=== PATIENT | female | born 1970 | race Two or more races ===

== ENCOUNTER 2022-02-10 20:23 | Inpatient (IN) | payer MEDICAID, OTHER ==
[~2022-02-10] VITALS: Ht 170.2 cm; Wt 66.0 kg
[2022-02-10] MEDS ORDERED: SODIUM CHLORIDE 0.9% 1,000 ML IV ONE ×2 (21:30→23:15)
[2022-02-10 21:43] LABS: Urine Bacteria FEW /hpf (None Seen); Urine Blood TRACE /uL (Negative); Urine Mucus FEW (None Seen); Urine Specific Gravity 1.023 (1.001-1.035); Urine WBC 139 /hpf (0 - 5); Urine WBC Clumps PRESENT /hpf (None Seen)
[2022-02-10 22:17] LABS: Basophils # (auto) 0 10 ^3/uL (0-0.2); Basophils % (auto) 0.6 % (0.0-2.0); Eosinophils # (auto) 0.2 10 ^3/uL (0-0.8); Eosinophils % (auto) 2.4 % (0.0-7.0); Hematocrit 31.4 % (36.0-46.0); Hemoglobin 10.5 g/dL (12.2-16.2); Lymphocytes # (auto) 3.5 10 ^3/uL (0.4-5.4); Lymphocytes % (auto) 44.4 % (10.0-50.0); Mean Corpuscular Hemoglobin 27.5 pg (28.0-32.0); Mean Corpuscular Hgb Conc. 33.4 g/dL (32.0-36.0); Mean Corpuscular Volume 82.5 fL (80.0-100.0); Monocytes # (auto) 0.6 10 ^3/uL (0-1.3); Monocytes % (auto) 7.1 % (0.0-12.0); Neutrophils # (auto) 3.6 10 ^3/uL (1.6-8.6); Neutrophils % (auto) 45.5 % (37.0-80.0); Nucleated Red Blood Cells % 0.1 %; Red Cell Distribution Width 12.9 % (11.8-14.3); White Blood Cell 7.9 10^3/uL (4.4-10.8)
[2022-02-10 22:47] LABS: Calcium 8.8 mg/dL (8.5-10.1); Potassium 4.2 mmol/L (3.5-5.1)
[2022-02-10 22:50] LABS: BUN/Creatinine Ratio 13.5; Bilirubin, Total 0.2 mg/dL (0.2-1.0); Total Protein 7.9 g/dL (6.4-8.2)
[2022-02-10] MEDS ORDERED: ONDANSETRON HCL 4 MG/2 ML VIAL IV ONE (23:15)
[2022-02-10] MEDS ORDERED: VANCOMYCIN 1GM/250ML 250 ML IV ONE (23:15)
[2022-02-11 00:38] LABS: Lactic Acid w/Reflex 2.2 mmol/L (0.4-2.0)
[2022-02-11] MEDS ORDERED: OXYCODONE W/ ACETAMINOPHEN 5/325MG TABLET PO ONE (01:45)
[2022-02-11] MEDS ORDERED: cefTRIAXone 1GM/50ML D5W 50 ML IV ONE (02:00)
[2022-02-11] MEDS ORDERED: ACETAMINOPHEN 325 MG TAB PO PRN (03:45)
[2022-02-11] MEDS ORDERED: VANCOMYCIN PER PHARMACY 0 MG IV SCH (03:45)
[2022-02-11] MEDS ORDERED: TEMAZEPAM 15 MG CAP PO PRN (03:45)
[2022-02-11] MEDS ORDERED: DEXTROSE (50%) 50ML SYRG IV PRN (03:45)
[2022-02-11] MEDS ORDERED: DOCUSATE SOD 100 MG CAP PO PRN (03:45)
[2022-02-11] MEDS: SODIUM CHLORIDE 0.9% 1,000 ML IV SCH ×2 (04:25→20:25)
[2022-02-11] MEDS: HYDROmorphone HCL 2 MG/ML VL/or syr IV PRN ×3 (04:27→21:25)
[2022-02-11] MEDS: ONDANSETRON HCL 4 MG/2 ML VIAL IV PRN ×3 (04:29→22:40)
[2022-02-11] MEDS ORDERED: NITROGLYCERIN 0.4 MG SL TAB SL PRN (05:00)
[2022-02-11] MEDS ORDERED: MORPHINE SULFATE INJ 2 MG/ml SYRG IV PRN (05:00)
[2022-02-11 06:22] LABS: Albumin 2.8 g/dL (3.4-5.0); BUN/Creatinine Ratio 19.7; Calcium 8.2 mg/dL (8.5-10.1); Potassium 4.5 mmol/L (3.5-5.1)
[2022-02-11] MEDS: ACCU-CHEK COMFORT CURVE STRIP VI SCH ×3 (06:27→19:34)
[2022-02-11 06:30] LABS: Bilirubin, Total 0.2 mg/dL (0.2-1.0); Total Protein 7.2 g/dL (6.4-8.2)
[2022-02-11] MEDS: InsuLIN REG 1unit/0.01ml Soln (100units/ml) SC SCH ×3 (06:30→18:44)
[2022-02-11 06:31] LABS: Basophils # (auto) 0.1 10 ^3/uL (0-0.2); Basophils % (auto) 0.7 % (0.0-2.0); Eosinophils # (auto) 0.2 10 ^3/uL (0-0.8); Eosinophils % (auto) 2.7 % (0.0-7.0); Hematocrit 29.6 % (36.0-46.0); Hemoglobin 10.1 g/dL (12.2-16.2); Lymphocytes # (auto) 3.4 10 ^3/uL (0.4-5.4); Lymphocytes % (auto) 44.4 % (10.0-50.0); Mean Corpuscular Volume 82.4 fL (80.0-100.0); Monocytes # (auto) 0.5 10 ^3/uL (0-1.3); Monocytes % (auto) 6.9 % (0.0-12.0); Neutrophils # (auto) 3.4 10 ^3/uL (1.6-8.6); Neutrophils % (auto) 45.3 % (37.0-80.0); Nucleated Red Blood Cells % 0.1 %; Red Blood Cells 3.59 10^6/uL (4.0-5.20); Red Cell Distribution Width 12.8 % (11.8-14.3); White Blood Cell 7.6 10^3/uL (4.4-10.8)
[2022-02-11] MEDS: LORazepam 2MG/ML-1ML VIAL IV PRN ×2 (07:24→22:40)
[2022-02-11] MEDS: ZINC SULFATE 220mg CAP or TAB PO SCH (10:15)
[2022-02-11 14:38] VITALS: BP 140/85
[2022-02-11] MEDS ORDERED: METF-372 PO (14:49)
[2022-02-11 17:07] VITALS: BP 142/84
[2022-02-11] MEDS: VANCOMYCIN 1GM/250ML 250 ML IV SCH (18:39)
[2022-02-11 22:00] VITALS: BP 144/86
[2022-02-11] MEDS ORDERED: INSULIN LANTUS (GLARGINE) 1 /0.01ml (100units/ml) SC SCH (22:00)
[2022-02-12] MEDS: ACCU-CHEK COMFORT CURVE STRIP VI SCH ×3 (01:15→14:14)
[2022-02-12] MEDS: InsuLIN REG 1unit/0.01ml Soln (100units/ml) SC SCH ×3 (01:17→13:22)
[2022-02-12 05:00] VITALS: BP_SYST 123; BP_SYST 150; BP_DIAS 74; BP_DIAS 78
[2022-02-12 05:16] LABS: Basophils # (auto) 0 10 ^3/uL (0-0.2); Basophils % (auto) 0.5 % (0.0-2.0); Eosinophils # (auto) 0.2 10 ^3/uL (0-0.8); Eosinophils % (auto) 2.8 % (0.0-7.0); Hematocrit 27.7 % (36.0-46.0); Hemoglobin 9.5 g/dL (12.2-16.2); Lymphocytes # (auto) 2.7 10 ^3/uL (0.4-5.4); Lymphocytes % (auto) 42.2 % (10.0-50.0); Mean Corpuscular Hgb Conc. 34.4 g/dL (32.0-36.0); Mean Corpuscular Volume 81.2 fL (80.0-100.0); Monocytes # (auto) 0.5 10 ^3/uL (0-1.3); Monocytes % (auto) 7.2 % (0.0-12.0); Neutrophils % (auto) 47.3 % (37.0-80.0); Red Blood Cells 3.41 10^6/uL (4.0-5.20); Red Cell Distribution Width 13.1 % (11.8-14.3); White Blood Cell 6.4 10^3/uL (4.4-10.8)
[2022-02-12 05:38] LABS: Calcium 8.4 mg/dL (8.5-10.1); Magnesium 2.1 mg/dL (1.6-2.6); Potassium 4.6 mmol/L (3.5-5.1)
[2022-02-12 05:46] LABS: Albumin 2.3 g/dL (3.4-5.0); BUN/Creatinine Ratio 21.7; Bilirubin, Total 0.2 mg/dL (0.2-1.0); Total Protein 5.8 g/dL (6.4-8.2)
[2022-02-12] MEDS: VANCOMYCIN 1GM/250ML 250 ML IV SCH (06:16)
[2022-02-12 08:00] VITALS: BP 110/85
[2022-02-12] MEDS ORDERED: cefTRIAXone 1GM/50ML D5W 50 ML IV SCH (09:00)
[2022-02-12] MEDS: ZINC SULFATE 220mg CAP or TAB PO SCH (09:02)
[2022-02-12] MEDS ORDERED: LANC-347 XX (10:57)
[2022-02-12] MEDS ORDERED: DOXY-332 PO (10:57)
[2022-02-12] MEDS ORDERED: INSLANTI SC (10:57)
[2022-02-12] MEDS ORDERED: GLIP5TAB12 PO (10:57)
[2022-02-12] MEDS ORDERED: INSU-567 XX (10:57)
[2022-02-12] MEDS ORDERED: BLOO1KIT60 XX (10:57)
[2022-02-12] MEDS: HYDROmorphone HCL 2 MG/ML VL/or syr IV PRN (11:00)
[2022-02-12] MEDS: ONDANSETRON HCL 4 MG/2 ML VIAL IV PRN (11:18)
[2022-02-12] MEDS: LORazepam 2MG/ML-1ML VIAL IV PRN (13:18)
[2022-02-12] MEDS: SODIUM CHLORIDE 0.9% 1,000 ML IV SCH (14:18)
[2022-02-12 15:07] VITALS: BP 136/82
== END 2022-02-12 17:00 | disposition home or self-care (01) | DRG 383 ==
LOC: EDBD 20:23 → ER 20:23 → OVERFLOW 02-11 04:53 → CENTRAL 02-11 14:20
PROVIDERS: ADMIT Nurse Practitioner Family; ATTEND Internal Medicine
DX: L03.011 Cellulitis of right finger (principal); N17.0 Acute kidney failure with tubular necrosis; E87.1 Hypo-osmolality and hyponatremia; L03.115 Cellulitis of right lower limb; E88.09 Other disorders of plasma-protein metabolism, not elsewhere classified; E11.65 Type 2 diabetes mellitus with hyperglycemia; N39.0 Urinary tract infection, site not specified; S60.519A Abrasion of unspecified hand, initial encounter; R74.8 Abnormal levels of other serum enzymes; Z20.822 Contact with and (suspected) exposure to COVID-19; L25.9 Unspecified contact dermatitis, unspecified cause; W57.XXXA Bitten or stung by nonvenomous insect and other nonvenomous arthropods, initial encounter; Y93.89 Activity, other specified; Y92.89 Other specified places as the place of occurrence of the external cause; Y99.8 Other external cause status; Z88.5 Allergy status to narcotic agent; Z79.84 Long term (current) use of oral hypoglycemic drugs
CPT/HCPCS: 36415; 73130; 80053; 81001; 82010; 82962; 83036; 83605; 83735; 85025; 87040; 87086; 96361; 96365; 96375; G0378; J0696; J1815; J2405

== ENCOUNTER 2022-05-17 12:14 | Inpatient (IN) | payer MEDICAID ==
[~2022-05-17] VITALS: Ht 170.2 cm; Wt 75.4 kg
[~2022-05-17 12:14] MED LIST: BLOO1KIT60 XX; DOXY-332 PO; GLIP5TAB12 PO; INSLANTI SC; INSU-567 XX; LANC-347 XX; METF-372 PO
[2022-05-17] MEDS ORDERED: SODIUM CHLORIDE 0.9% 1,000 ML IV ONE (13:30)
[2022-05-17] MEDS ORDERED: ceFAZolin 1GM/50ML 50 ML IV ONE (13:30)
[2022-05-17 15:03] LABS: Calcium 8.4 mg/dL (8.5-10.1); Potassium 4.4 mmol/L (3.5-5.1)
[2022-05-17 15:07] LABS: Albumin 3.1 g/dL (3.4-5.0); BUN/Creatinine Ratio 27.9; Magnesium 2.2 mg/dL (1.6-2.6)
[2022-05-17 15:09] LABS: Bilirubin, Total 0.3 mg/dL (0.2-1.0); Total Protein 6.4 g/dL (6.4-8.2)
[2022-05-17 15:23] LABS: CRP High Sensitivity 1.7 mg/dL (< 0.3)
[2022-05-17 16:07] LABS: Basophils # (auto) 0 10 ^3/uL (0-0.2); Basophils % (auto) 0.4 % (0.0-2.0); Eosinophils # (auto) 0.1 10 ^3/uL (0-0.8); Eosinophils % (auto) 1.4 % (0.0-7.0); Hematocrit 32.6 % (36.0-46.0); Lymphocytes # (auto) 2.5 10 ^3/uL (0.4-5.4); Lymphocytes % (auto) 28.9 % (10.0-50.0); Mean Corpuscular Hgb Conc. 33.8 g/dL (32.0-36.0); Mean Corpuscular Volume 82.7 fL (80.0-100.0); Monocytes # (auto) 0.8 10 ^3/uL (0-1.3); Monocytes % (auto) 9.7 % (0.0-12.0); Neutrophils # (auto) 5.1 10 ^3/uL (1.6-8.6); Neutrophils % (auto) 59.6 % (37.0-80.0); Red Blood Cells 3.94 10^6/uL (4.0-5.20); Red Cell Distribution Width 13.8 % (11.8-14.3); White Blood Cell 8.5 10^3/uL (4.4-10.8)
[2022-05-17] MEDS ORDERED: fentaNYL CITRATE 100 MCG/2 ML VL IV ONE (16:15)
[2022-05-17] MEDS ORDERED: SODIUM CHLORIDE 0.9% 1,000 ML IV SCH (21:45)
[2022-05-17] MEDS ORDERED: ONDANSETRON HCL 4 MG/2 ML VIAL IV PRN (21:45)
[2022-05-17] MEDS ORDERED: DEXTROSE (50%) 50ML SYRG IV PRN (21:45)
[2022-05-17] MEDS ORDERED: MAALOX PLUS or MAALOX 30 ML PO PRN (21:45)
[2022-05-17] MEDS ORDERED: ACETAMINOPHEN 325 MG TAB PO PRN (21:45)
[2022-05-17] MEDS: ACCU-CHEK COMFORT CURVE STRIP VI SCH (22:00)
[2022-05-17] MEDS: InsuLIN REG 1unit/0.01ml Soln (100units/ml) SC SCH (22:00)
[2022-05-18] MEDS ORDERED: HYDROcodone-ACET 5/325MG TAB PO ONE (00:15)
[2022-05-18] MEDS: ceFAZolin 1GM/50ML 50 ML IV SCH ×3 (04:45→20:16)
[2022-05-18] MEDS: ACCU-CHEK COMFORT CURVE STRIP VI SCH ×4 (07:00→23:33)
[2022-05-18 07:44] LABS: Basophils # (auto) 0 10 ^3/uL (0-0.2); Basophils % (auto) 0.3 % (0.0-2.0); Eosinophils # (auto) 0.1 10 ^3/uL (0-0.8); Eosinophils % (auto) 0.5 % (0.0-7.0); Hematocrit 31.1 % (36.0-46.0); Hemoglobin 10.6 g/dL (12.2-16.2); Lymphocytes # (auto) 2.5 10 ^3/uL (0.4-5.4); Lymphocytes % (auto) 24.5 % (10.0-50.0); Mean Corpuscular Hemoglobin 28.5 pg (28.0-32.0); Mean Corpuscular Hgb Conc. 34.1 g/dL (32.0-36.0); Mean Corpuscular Volume 83.5 fL (80.0-100.0); Monocytes # (auto) 1.1 10 ^3/uL (0-1.3); Monocytes % (auto) 10.4 % (0.0-12.0); Neutrophils # (auto) 6.6 10 ^3/uL (1.6-8.6); Neutrophils % (auto) 64.3 % (37.0-80.0); Nucleated Red Blood Cells % 0.1 %; Red Blood Cells 3.72 10^6/uL (4.0-5.20); Red Cell Distribution Width 13.4 % (11.8-14.3); White Blood Cell 10.2 10^3/uL (4.4-10.8)
[2022-05-18 07:59] LABS: BUN/Creatinine Ratio 26.3; Calcium 8.3 mg/dL (8.5-10.1); Potassium 4.2 mmol/L (3.5-5.1)
[2022-05-18] MEDS ORDERED: HYDROmorphone HCL 2 MG/ML VL/or syr IV ONE (12:00)
[2022-05-18 13:41] LABS: INR 0.95 (0.9-1.15)
[2022-05-18] MEDS: InsuLIN REG 1unit/0.01ml Soln (100units/ml) SC SCH ×3 (20:00→23:45)
[2022-05-18] MEDS: SODIUM CHLORIDE 0.9% 1,000 ML IV SCH (20:16)
[2022-05-18 22:00] VITALS: BP 186/103
[2022-05-18] MEDS ORDERED: BACL20TA PO (22:26)
[2022-05-18] MEDS ORDERED: HYDR-3682 PO (22:27)
[2022-05-18 22:28] VITALS: BP 150/82
[2022-05-19] MEDS: HYDROmorphone HCL 2 MG/ML VL/or syr IV PRN ×5 (00:29→22:59)
[2022-05-19] MEDS: TEMAZEPAM 15 MG CAP PO PRN (00:53)
[2022-05-19 05:00] VITALS: BP 146/87
[2022-05-19] MEDS: SODIUM CHLORIDE 0.9% 1,000 ML IV SCH (05:03)
[2022-05-19] MEDS: ceFAZolin 1GM/50ML 50 ML IV SCH ×2 (05:37→15:26)
[2022-05-19 06:26] LABS: Urine Bacteria FEW /hpf (None Seen); Urine Blood 1+ /uL (Negative); Urine Budding Yeast MANY /hpf (None Seen); Urine Specific Gravity 1.014 (1.001-1.035); Urine WBC 285 /hpf (0 - 5); Urine WBC Clumps PRESENT /hpf (None Seen)
[2022-05-19 06:32] LABS: Amphetamine Screen, Urine NEGATIVE (NEGATIVE); Barbiturate Scree,Urine NEGATIVE (NEGATIVE); Benzodiazephine Screen, Urine NEGATIVE (NEGATIVE); Cannabinoid Screen, Urine NEGATIVE (NEGATIVE); Cocaine Screen, Urine NEGATIVE (NEGATIVE); Opiate Scree,Urine NEGATIVE (NEGATIVE); Phencyclidine Screen, Urine NEGATIVE (NEGATIVE)
[2022-05-19] MEDS: ACCU-CHEK COMFORT CURVE STRIP VI SCH ×4 (06:45→21:16)
[2022-05-19 08:00] VITALS: BP 134/85
[2022-05-19 08:54] VITALS: BP 134/85
[2022-05-19] MEDS ORDERED: ONDANSETRON HCL 4 MG/2 ML VIAL ONE (10:13)
[2022-05-19] MEDS ORDERED: fentaNYL CITRATE 100 MCG/2 ML VL ONE (10:13)
[2022-05-19] MEDS ORDERED: MIDAZOLAM HCL 2MG/2ML 2ml VIAL (1mg/ml) ONE (10:13)
[2022-05-19] MEDS ORDERED: DexAMETHasone SOD PHOS 10MG/1ML VIAL INJ ONE (10:13)
[2022-05-19] MEDS ORDERED: SODIUM CHLORIDE LOCK 10 ML ONE (10:14)
[2022-05-19] MEDS ORDERED: PROPOFOL 10 MG/ML 20 ML IV ONE (10:14)
[2022-05-19] MEDS ORDERED: ceFAZolin 1GM/50ML 100 ML IV ONE (10:43)
[2022-05-19] MEDS ORDERED: BUPIVACAINE 0.25% INJ 50ML VIAL ONE (10:45)
[2022-05-19] MEDS ORDERED: VANCOMYCIN HCL 1000 MG VL ONE (10:46)
[2022-05-19] MEDS: InsuLIN REG 1unit/0.01ml Soln (100units/ml) SC SCH ×3 (11:08→21:18)
[2022-05-19] MEDS ORDERED: SUGAMMADEX 200mg/2ml Vial (100MG/ML) IV ONE (12:04)
[2022-05-19] MEDS: FOLIC ACID 1 MG, MULTIPLE VITAMIN 10 ML, MAGNESIUM SULF SDV 50% 8 MEQ, THIAMINE INJ 100... INJ SCH ×5 (16:50)
[2022-05-19 17:25] VITALS: BP 145/88
[2022-05-19] MEDS ORDERED: VANCOMYCIN 1GM/250ML 250 ML IV ONE (17:45)
[2022-05-19] MEDS ORDERED: VANCOMYCIN PER PHARMACY 0 MG IV SCH (17:45)
[2022-05-19] MEDS: VANCOMYCIN 1GM/250ML 250 ML IV SCH (20:19)
[2022-05-19] MEDS: LORazepam 0.5 MG TAB PO PRN (20:20)
[2022-05-19] MEDS: INSULIN LANTUS (GLARGINE) 1 /0.01ml (100units/ml) SC SCH (21:40)
[2022-05-19 22:00] VITALS: BP 150/86
[2022-05-19] MEDS: CEFTRIAXONE SODIUM 2 GM in D5W 5% 50 ML IV SCH (22:59)
[2022-05-20 05:30] VITALS: BP 148/91
[2022-05-20] MEDS: ACCU-CHEK COMFORT CURVE STRIP VI SCH ×4 (06:45→21:53)
[2022-05-20] MEDS: SODIUM CHLORIDE 0.9% 1,000 ML IV SCH ×2 (06:46→13:21)
[2022-05-20] MEDS: InsuLIN REG 1unit/0.01ml Soln (100units/ml) SC SCH ×4 (06:48→21:55)
[2022-05-20] MEDS: HYDROmorphone HCL 2 MG/ML VL/or syr IV PRN ×3 (07:03→20:28)
[2022-05-20 08:00] VITALS: BP 134/85
[2022-05-20] MEDS: CEFTRIAXONE SODIUM 2 GM in D5W 5% 50 ML IV SCH (08:29)
[2022-05-20 09:00] VITALS: BP 132/87
[2022-05-20] MEDS: LORazepam 0.5 MG TAB PO PRN ×2 (12:46→21:54)
[2022-05-20] MEDS: FOLIC ACID 1 MG, MULTIPLE VITAMIN 10 ML, MAGNESIUM SULF SDV 50% 8 MEQ, THIAMINE INJ 100... INJ SCH ×5 (12:46)
[2022-05-20 13:00] VITALS: BP 165/81
[2022-05-20] MEDS: VANCOMYCIN 1GM/250ML 250 ML IV SCH (13:51)
[2022-05-20 16:53] VITALS: BP 148/88
[2022-05-20 21:52] VITALS: BP 153/85
[2022-05-20] MEDS: DOCUSATE SOD 100 MG CAP PO PRN (21:54)
[2022-05-20] MEDS: INSULIN LANTUS (GLARGINE) 1 /0.01ml (100units/ml) SC SCH (21:56)
[2022-05-21] MEDS: HYDROmorphone HCL 2 MG/ML VL/or syr IV PRN ×5 (02:23→22:08)
[2022-05-21 05:00] VITALS: BP 158/92
[2022-05-21] MEDS: SODIUM CHLORIDE 0.9% 1,000 ML IV SCH ×2 (06:29→23:20)
[2022-05-21] MEDS: ACCU-CHEK COMFORT CURVE STRIP VI SCH ×4 (06:30→22:04)
[2022-05-21] MEDS: InsuLIN REG 1unit/0.01ml Soln (100units/ml) SC SCH ×4 (06:32→22:18)
[2022-05-21] MEDS: VANCOMYCIN 1GM/250ML 250 ML IV SCH (07:51)
[2022-05-21 08:00] VITALS: BP 161/94
[2022-05-21 09:00] VITALS: BP 161/94
[2022-05-21] MEDS: CEFTRIAXONE SODIUM 2 GM in D5W 5% 50 ML IV SCH (10:00)
[2022-05-21] MEDS: DOCUSATE SOD 100 MG CAP PO PRN ×2 (11:38→17:30)
[2022-05-21 13:00] VITALS: BP 143/83
[2022-05-21] MEDS: FOLIC ACID 1 MG, MULTIPLE VITAMIN 10 ML, MAGNESIUM SULF SDV 50% 8 MEQ, THIAMINE INJ 100... INJ SCH ×5 (13:26)
[2022-05-21 17:00] VITALS: BP 161/96
[2022-05-21] MEDS: LORazepam 0.5 MG TAB PO PRN (20:50)
[2022-05-21 21:51] VITALS: BP_SYST 141; BP_SYST 151; BP_DIAS 79
[2022-05-21] MEDS: INSULIN LANTUS (GLARGINE) 1 /0.01ml (100units/ml) SC SCH (22:24)
[2022-05-22] MEDS: VANCOMYCIN 1GM/250ML 250 ML IV SCH ×2 (02:00→10:48)
[2022-05-22 05:00] VITALS: BP_SYST 116; BP_SYST 160; BP_DIAS 69; BP_DIAS 81
[2022-05-22] MEDS: HYDROcodone-ACET 5/325MG TAB PO PRN (05:34)
[2022-05-22] MEDS: ACCU-CHEK COMFORT CURVE STRIP VI SCH ×4 (06:45→22:56)
[2022-05-22] MEDS: InsuLIN REG 1unit/0.01ml Soln (100units/ml) SC SCH ×4 (06:50→23:19)
[2022-05-22] MEDS: HYDROmorphone HCL 2 MG/ML VL/or syr IV PRN ×3 (07:15→20:00)
[2022-05-22 09:01] VITALS: BP_SYST 118; BP_SYST 140; BP_DIAS 75; BP_DIAS 76
[2022-05-22] MEDS ORDERED: cefTRIAXone 1GM/50ML D5W 0 ML IV ONE (09:24)
[2022-05-22] MEDS: CEFTRIAXONE SODIUM 2 GM in D5W 5% 50 ML IV SCH (09:38)
[2022-05-22 13:00] VITALS: BP_SYST 112; BP_SYST 144; BP_DIAS 75; BP_DIAS 88
[2022-05-22] MEDS: FOLIC ACID 1 MG, MULTIPLE VITAMIN 10 ML, MAGNESIUM SULF SDV 50% 8 MEQ, THIAMINE INJ 100... INJ SCH ×5 (13:45)
[2022-05-22] MEDS ORDERED: CLINDAMYCIN 300MG IV 50 ML IV SCH (14:00)
[2022-05-22 15:52] LABS: INR 0.89 (0.9-1.15)
[2022-05-22] MEDS: SODIUM CHLORIDE 0.9% 1,000 ML IV SCH (15:58)
[2022-05-22] MEDS: CLINDAMYCIN 600MG IV 50 ML IV SCH ×2 (15:58→22:56)
[2022-05-22 17:00] VITALS: BP 166/85
[2022-05-22 20:00] VITALS: BP 122/98
[2022-05-22] MEDS: LORazepam 0.5 MG TAB PO PRN (20:00)
[2022-05-22 22:00] VITALS: BP 122/98
[2022-05-22] MEDS: INSULIN LANTUS (GLARGINE) 1 /0.01ml (100units/ml) SC SCH (23:19)
[2022-05-23] MEDS: HYDROmorphone HCL 2 MG/ML VL/or syr IV PRN ×4 (01:45→22:20)
[2022-05-23] MEDS: VANCOMYCIN 1GM/250ML 250 ML IV SCH ×2 (04:24→21:59)
[2022-05-23] MEDS: LORazepam 0.5 MG TAB PO PRN ×2 (04:35→10:12)
[2022-05-23 05:00] VITALS: BP 149/88
[2022-05-23] MEDS: ACCU-CHEK COMFORT CURVE STRIP VI SCH ×4 (06:08→22:01)
[2022-05-23] MEDS: InsuLIN REG 1unit/0.01ml Soln (100units/ml) SC SCH ×5 (07:12→23:05)
[2022-05-23 08:23] LABS: Basophils # (auto) 0 10 ^3/uL (0-0.2); Basophils % (auto) 0.3 % (0.0-2.0); Eosinophils # (auto) 0.2 10 ^3/uL (0-0.8); Eosinophils % (auto) 2.5 % (0.0-7.0); Hematocrit 23.7 % (36.0-46.0); Hemoglobin 8.1 g/dL (12.2-16.2); Lymphocytes # (auto) 2.1 10 ^3/uL (0.4-5.4); Mean Corpuscular Hemoglobin 28.3 pg (28.0-32.0); Mean Corpuscular Hgb Conc. 34.3 g/dL (32.0-36.0); Mean Corpuscular Volume 82.3 fL (80.0-100.0); Monocytes # (auto) 0.6 10 ^3/uL (0-1.3); Monocytes % (auto) 9.8 % (0.0-12.0); Neutrophils # (auto) 3.1 10 ^3/uL (1.6-8.6); Neutrophils % (auto) 52.4 % (37.0-80.0); Red Blood Cells 2.87 10^6/uL (4.0-5.20); Red Cell Distribution Width 13.5 % (11.8-14.3)
[2022-05-23 08:31] LABS: INR 0.89 (0.9-1.15)
[2022-05-23] MEDS: SODIUM CHLORIDE 0.9% 1,000 ML IV SCH (08:40)
[2022-05-23] MEDS: CLINDAMYCIN 600MG IV 50 ML IV SCH (08:50)
[2022-05-23] MEDS: HYDROcodone-ACET 5/325MG TAB PO PRN (08:51)
[2022-05-23 09:00] VITALS: BP 148/86
[2022-05-23] MEDS: FOLIC ACID 1 MG, MULTIPLE VITAMIN 10 ML, MAGNESIUM SULF SDV 50% 8 MEQ, THIAMINE INJ 100... INJ SCH ×5 (12:00)
[2022-05-23 13:00] VITALS: BP 156/88
[2022-05-23] MEDS: CEFEPIME 2 GM in SODIUM CHL 0.9% 50 ML IV SCH ×2 (14:00→17:22)
[2022-05-23] MEDS ORDERED: LIDOCAINE 1% (LOCAL ANESTH.) PF 5ml SDV ID ONE (14:00)
[2022-05-23 17:00] VITALS: BP 160/84
[2022-05-23 20:00] VITALS: BP 161/94
[2022-05-23] MEDS: INSULIN LANTUS (GLARGINE) 1 /0.01ml (100units/ml) SC SCH (21:58)
[2022-05-23 22:00] VITALS: BP 180/86
[2022-05-23] MEDS: SODIUM CHLOR 0.9% PF (SALINE LOCK) 10ML VIAL/SYR IV SCH (22:00)
[2022-05-24] MEDS: HYDROcodone-ACET 5/325MG TAB PO PRN (00:07)
[2022-05-24] MEDS: SODIUM CHLORIDE 0.9% 1,000 ML IV SCH (01:15)
[2022-05-24] MEDS: TEMAZEPAM 15 MG CAP PO PRN (02:51)
[2022-05-24] MEDS: HYDROmorphone HCL 2 MG/ML VL/or syr IV PRN ×4 (02:53→16:12)
[2022-05-24 05:20] VITALS: BP 130/85
[2022-05-24 05:28] VITALS: BP 149/80
[2022-05-24] MEDS: ACCU-CHEK COMFORT CURVE STRIP VI SCH ×2 (06:20→11:29)
[2022-05-24] MEDS: InsuLIN REG 1unit/0.01ml Soln (100units/ml) SC SCH ×2 (06:33→11:27)
[2022-05-24 09:00] VITALS: BP 145/96
[2022-05-24] MEDS: SODIUM CHLOR 0.9% PF (SALINE LOCK) 10ML VIAL/SYR IV SCH (11:27)
[2022-05-24] MEDS: LORazepam 0.5 MG TAB PO PRN (11:36)
[2022-05-24] MEDS: FOLIC ACID 1 MG, MULTIPLE VITAMIN 10 ML, MAGNESIUM SULF SDV 50% 8 MEQ, THIAMINE INJ 100... INJ SCH ×5 (12:00)
[2022-05-24] MEDS ORDERED: HYDR-4902 PO (12:28)
[2022-05-24 13:00] VITALS: BP 145/81
[2022-05-24 16:41] VITALS: BP 148/88
== END 2022-05-24 17:35 | disposition home health service (06) | DRG 315 ==
LOC: ER 12:14 → OVERFLOW 21:38 → WEST WING 05-18 21:53
PROVIDERS: ADMIT Hospitalist; ATTEND Family Medicine
PROC: 0LQ30ZZ Repair Right Upper Arm Tendon, Open Approach (ICD-10-PCS; 2022-05-19)
PROC: 0XQBXZZ Repair Right Elbow Region, External Approach (ICD-10-PCS; 2022-05-19)
PROC: 0KB70ZZ Excision of Right Upper Arm Muscle, Open Approach (ICD-10-PCS; 2022-05-19)
PROC: 0RCL0ZZ Extirpation of Matter from Right Elbow Joint, Open Approach (ICD-10-PCS; principal; 2022-05-19 10:54)
PROC: 05HA33Z Insertion of Infusion Device into Left Brachial Vein, Percutaneous Approach (ICD-10-PCS; 2022-05-23)
PROC: B54NZZA Ultrasonography of Left Upper Extremity Veins, Guidance (ICD-10-PCS; 2022-05-23)
DX: S51.021A Laceration with foreign body of right elbow, initial encounter (principal); M00.021 Staphylococcal arthritis, right elbow; I95.89 Other hypotension; E11.649 Type 2 diabetes mellitus with hypoglycemia without coma; E78.5 Hyperlipidemia, unspecified; E11.9 Type 2 diabetes mellitus without complications; B95.8 Unspecified staphylococcus as the cause of diseases classified elsewhere; Z20.822 Contact with and (suspected) exposure to COVID-19; W01.110A Fall on same level from slipping, tripping and stumbling with subsequent striking against sharp glass, initial encounter; F10.229 Alcohol dependence with intoxication, unspecified; I10 Essential (primary) hypertension; R81 Glycosuria; Z88.5 Allergy status to narcotic agent; Y93.89 Activity, other specified; Y92.89 Other specified places as the place of occurrence of the external cause; Y99.8 Other external cause status
CPT/HCPCS: 36415; 36569; 70450; 71045; 73080; 73200; 80048; 80053; 80202; 80307; 80320; 81001; 82565; 82962; 83036; 83605; 83735; 84484; 84702; 85025; 85610; 85652; 86141; 86850; 86900; 86901; 87070; 87075; 87077; 87186; 87205; 87426; 96361; 96365; 96375; G0378; J0690; J0696; J1100; J1815; J2250; J2405; J2704; J3490; J7060

== ENCOUNTER 2023-02-01 20:18 | Emergency (ER) | payer MEDICAID ==
[~2023-02-01] VITALS: Ht 170.2 cm; Wt 65.0 kg
[~2023-02-01 20:18] MED LIST changes: +BACL20TA PO; -DOXY-332 PO; +DOXY-448 PO; +HYDR-3682 PO; +HYDR-4902 PO
[2023-02-01] MEDS ORDERED: HYDROcodone-ACET 5/325MG TAB PO ONE (21:00)
[2023-02-01] MEDS ORDERED: KETOROLAC TROMETH 60MG/2ML VIAL IM ONE (21:00)
[2023-02-02] MEDS ORDERED: cefTRIAXone SOD 1,000 MG VL IM ONE
[2023-02-02] MEDS ORDERED: ACET500T58 PO (00:02)
[2023-02-02] MEDS ORDERED: IBUP-1454 PO (00:02)
[2023-02-02 00:24] VITALS: BP 91/44; PULSE 87; RESP 19; TEMP 97.7; O2SAT 100
== END 2023-02-02 00:25 | disposition home or self-care (01) ==
LOC: ER 20:21
DX: S60.012A Contusion of left thumb without damage to nail, initial encounter (principal); I10 Essential (primary) hypertension; E11.9 Type 2 diabetes mellitus without complications; Z79.4 Long term (current) use of insulin; Z79.899 Other long term (current) drug therapy; Z88.5 Allergy status to narcotic agent; Z88.8 Allergy status to other drugs, medicaments and biological substances; W18.39XA Other fall on same level, initial encounter; Y93.89 Activity, other specified; Y92.89 Other specified places as the place of occurrence of the external cause; Y99.8 Other external cause status
CPT/HCPCS: 73130; 96372; 99284; J0696; J1885

== ENCOUNTER 2023-02-28 14:56 | Inpatient (IN) | payer MEDICAID ==
[~2023-02-28] VITALS: Ht 170.2 cm; Wt 64.2 kg
[~2023-02-28 14:56] MED LIST changes: +ACET500T58 PO; +IBUP-1454 PO
[2023-02-28 15:54] VITALS: O2SAT 95
[2023-02-28 15:56] LABS: Alanine Aminotransferase 26 U/L (7-40); Albumin 3.1 g/dL (3.2-4.8); Alkaline Phosphatase 306 U/L (46-116); Anion Gap 6 (5-15); Aspartate Aminotransferase 19 U/L (13-40); BUN/Creatinine Ratio 23.6 (10.0-20.0); Bilirubin, Total 0.2 mg/dL (0.2-1.0); Blood Urea Nitrogen 29 mg/dL (9-23); Calcium 8.2 mg/dL (8.5-10.1); Carbon Dioxide 23 mmol/L (20-30); Chloride 109 mmol/L (98-107); Glucose 267 mg/dL (74-106); Potassium 4.5 mmol/L (3.5-5.1); Sodium 138 mmol/L (136-145); Total Protein 6.1 g/dL (5.7-8.2)
[2023-02-28 16:01] LABS: Basophils # (auto) 0 10 ^3/uL (0-0.2); Basophils % (auto) 0.3 % (0.0-2.0); Eosinophils # (auto) 0.1 10 ^3/uL (0-0.8); Eosinophils % (auto) 1.7 % (0.0-7.0); Hematocrit 24.7 % (36.0-46.0); Lymphocytes # (auto) 1.7 10 ^3/uL (0.4-5.4); Mean Corpuscular Hemoglobin 25.8 pg (28.0-32.0); Mean Corpuscular Hgb Conc. 32.6 g/dL (32.0-36.0); Mean Corpuscular Volume 79.1 fL (80.0-100.0); Monocytes # (auto) 0.7 10 ^3/uL (0-1.3); Monocytes % (auto) 8.8 % (0.0-12.0); Neutrophils # (auto) 5.3 10 ^3/uL (1.6-8.6); Neutrophils % (auto) 67.2 % (37.0-80.0); Red Blood Cells 3.12 10^6/uL (4.0-5.20); White Blood Cell 7.9 10^3/uL (4.4-10.8)
[2023-02-28 16:10] LABS: Lipase 43 U/L (12-53)
[2023-02-28] MEDS ORDERED: ACETAMINOPHEN 325 MG TAB PO ONE (16:15)
[2023-02-28] MEDS ORDERED: ASPirin 325 MG TAB PO ONE (17:00)
[2023-02-28] MEDS ORDERED: fentaNYL CITRATE 100 MCG/2 ML VL IV ONE (17:30)
[2023-02-28] MEDS ORDERED: ONDANSETRON HCL 4 MG/2 ML VIAL IV ONE (18:15)
[2023-02-28] MEDS ORDERED: LORazepam 2MG/ML-1ML VIAL IV ONE (18:15)
[2023-02-28] MEDS ORDERED: DEXTROSE (50%) 50ML SYRG IV PRN (18:15)
[2023-02-28] MEDS ORDERED: MORPHINE SULFATE INJ 2 MG/ml SYRG IV PRN (18:15)
[2023-02-28] MEDS ORDERED: DOCUSATE SOD 100 MG CAP PO PRN (18:15)
[2023-02-28] MEDS ORDERED: NITROGLYCERIN 0.4 MG SL TAB SL PRN (18:15)
[2023-02-28] MEDS ORDERED: ACETAMINOPHEN 325 MG TAB PO PRN (18:15)
[2023-02-28] MEDS ORDERED: SODIUM CHLORIDE 0.9% 1,000 ML IV SCH (18:30)
[2023-02-28] MEDS ORDERED: LABETALOL HCL 5 MG/ML 4ML SYRINGE IV PRN (18:45)
[2023-02-28 18:50] LABS: Amphetamine Screen, Urine Neg (NEGATIVE); Barbiturate Scree,Urine Neg (NEGATIVE); Benzodiazephine Screen, Urine Neg (NEGATIVE); Cannabinoid Screen, Urine Neg (NEGATIVE); Cocaine Screen, Urine Neg (NEGATIVE); Opiate Scree,Urine Neg (NEGATIVE); Phencyclidine Screen, Urine Neg (NEGATIVE)
[2023-02-28 19:01] LABS: Urine Bacteria MANY /hpf (None Seen); Urine Blood 1+ /uL (Negative); Urine Budding Yeast FEW /hpf (None Seen); Urine Clarity HAZY (Clear); Urine Color Colorless (Yellow); Urine Protein, UAD 3+ (Negative); Urine Specific Gravity 1.014 (1.001-1.035); Urine Urobilinogen Normal (Negative); Urine WBC 292 /hpf (0 - 5); Urine WBC Clumps PRESENT /hpf (None Seen)
[2023-02-28] MEDS ORDERED: SODIUM CHLORIDE 0.9% 1,000 ML IV ONE (19:15)
[2023-02-28] MEDS ORDERED: cefTRIAXone 1GM/50ML D5W 50 ML IV ONE ×2 (19:15→20:48)
[2023-02-28 19:55] VITALS: PULSE 95; RESP 17; O2SAT 98
[2023-02-28 21:13] LABS: Erythrocyte Sedimentation Rate 85 mm/hr (0-20)
[2023-02-28] MEDS: ACCU-CHEK COMFORT CURVE STRIP VI SCH (22:13)
[2023-02-28] MEDS: ATORVASTATIN 20 MG TAB PO SCH (22:17)
[2023-02-28] MEDS: hydrOXYzine 25 MG TAB or CAP PO SCH (22:17)
[2023-02-28] MEDS: InsuLIN REG 1unit/0.01ml Soln (100units/ml) SC SCH (22:20)
[2023-03-01] MEDS: HYDROmorphone HCL 2 MG/ML VL/or syr IV PRN ×5 (00:33→22:27)
[2023-03-01] MEDS: ONDANSETRON HCL 4 MG/2 ML VIAL IV PRN ×3 (00:37→22:27)
[2023-03-01 05:28] LABS: Basophils # (auto) 0 10 ^3/uL (0-0.2); Basophils % (auto) 0.3 % (0.0-2.0); Hemoglobin 7.8 g/dL (12.2-16.2); Lymphocytes # (auto) 1.9 10 ^3/uL (0.4-5.4); Mean Corpuscular Hemoglobin 25.7 pg (28.0-32.0); Monocytes # (auto) 0.5 10 ^3/uL (0-1.3)
[2023-03-01 05:31] LABS: Eosinophils # (auto) 0.1 10 ^3/uL (0-0.8); Eosinophils % (auto) 2.3 % (0.0-7.0); Hematocrit 24.2 % (36.0-46.0); Lymphocytes % (auto) 30.4 % (10.0-50.0); Mean Corpuscular Hgb Conc. 32.3 g/dL (32.0-36.0); Mean Corpuscular Volume 79.6 fL (80.0-100.0); Monocytes % (auto) 8.7 % (0.0-12.0); Neutrophils # (auto) 3.6 10 ^3/uL (1.6-8.6); Neutrophils % (auto) 58.3 % (37.0-80.0); Red Blood Cells 3.04 10^6/uL (4.0-5.20); Red Cell Distribution Width 15.3 % (11.8-14.3); White Blood Cell 6.2 10^3/uL (4.4-10.8)
[2023-03-01 05:41] LABS: Alanine Aminotransferase 23 U/L (7-40); Albumin 3.2 g/dL (3.2-4.8); Alkaline Phosphatase 277 U/L (46-116); Anion Gap 6 (5-15); Aspartate Aminotransferase 24 U/L (13-40); BUN/Creatinine Ratio 15.9 (10.0-20.0); Bilirubin, Total 0.3 mg/dL (0.2-1.0); Blood Urea Nitrogen 25 mg/dL (9-23); Calcium 8.5 mg/dL (8.5-10.1); Carbon Dioxide 23 mmol/L (20-30); Chloride 110 mmol/L (98-107); Cholesterol 137 mg/dL (< 200); Glucose 174 mg/dL (74-106); HDL Cholesterol 46 mg/dL (40-59); LDL Cholesterol 70 mg/dL (< 100); Potassium 4.5 mmol/L (3.5-5.1); Sodium 139 mmol/L (136-145); Total Protein 6.3 g/dL (5.7-8.2); Triglycerides 152 mg/dL (< 150)
[2023-03-01] MEDS: hydrOXYzine 25 MG TAB or CAP PO SCH ×3 (06:13→22:28)
[2023-03-01] MEDS: ACCU-CHEK COMFORT CURVE STRIP VI SCH ×4 (07:25→22:20)
[2023-03-01] MEDS: InsuLIN REG 1unit/0.01ml Soln (100units/ml) SC SCH ×4 (07:28→22:28)
[2023-03-01 07:50] VITALS: PULSE 101; RESP 13; O2SAT 96
[2023-03-01 08:06] LABS: % Iron Saturation 9.4 % (15-50)
[2023-03-01] MEDS: LISINOPRIL 10 MG TAB PO SCH ×2 (09:47→10:00)
[2023-03-01] MEDS: cefTRIAXone 1GM/50ML D5W 50 ML IV SCH (09:48)
[2023-03-01] MEDS ORDERED: FUROSEMIDE 20 MG/2 ML VIAL IV SCH (10:00)
[2023-03-01] MEDS: METOPROLOL TARTRATE 25 MG TAB PO SCH ×2 (10:52→22:28)
[2023-03-01] MEDS: ASPirin-EC 81 mg tab PO SCH (10:53)
[2023-03-01] MEDS: ENOXAPARIN SOD 30 MG/0.3 ML SYRINGE SC SCH (10:53)
[2023-03-01] MEDS: FUROSEMIDE 20 MG/2 ML VIAL IV SCH (18:07)
[2023-03-01 20:07] VITALS: PULSE 89; RESP 14; O2SAT 95
[2023-03-01] MEDS: ATORVASTATIN 20 MG TAB PO SCH (22:28)
[2023-03-01] MEDS ORDERED: FERR325T20 PO (23:38)
[2023-03-01 23:50] VITALS: PULSE 80; RESP 18; O2SAT 94
[2023-03-02] MEDS ORDERED: TEMAZEPAM 15 MG CAP PO ONE (01:00)
[2023-03-02 05:00] VITALS: BP 128/72; PULSE 78; RESP 18; TEMP 97.9; O2SAT 92
[2023-03-02] MEDS: ACCU-CHEK COMFORT CURVE STRIP VI SCH ×4 (07:35→20:58)
[2023-03-02] MEDS: FUROSEMIDE 20 MG/2 ML VIAL IV SCH ×2 (07:36→17:45)
[2023-03-02] MEDS: InsuLIN REG 1unit/0.01ml Soln (100units/ml) SC SCH ×4 (07:36→21:13)
[2023-03-02] MEDS: hydrOXYzine 25 MG TAB or CAP PO SCH ×3 (07:36→20:57)
[2023-03-02] MEDS: HYDROmorphone HCL 2 MG/ML VL/or syr IV PRN ×3 (07:37→15:27)
[2023-03-02 07:58] LABS: Basophils # (auto) 0 10 ^3/uL (0-0.2); Eosinophils # (auto) 0.2 10 ^3/uL (0-0.8); Hematocrit 23.3 % (36.0-46.0); Hemoglobin 7.5 g/dL (12.2-16.2); Lymphocytes # (auto) 2.4 10 ^3/uL (0.4-5.4); Mean Corpuscular Hgb Conc. 32.1 g/dL (32.0-36.0); Monocytes # (auto) 0.6 10 ^3/uL (0-1.3); White Blood Cell 6.2 10^3/uL (4.4-10.8)
[2023-03-02 08:00] VITALS: BP 142/79; PULSE 77; PULSE 78; PULSE 86; RESP 20; O2SAT 99
[2023-03-02 08:00] LABS: Basophils % (auto) 0.2 % (0.0-2.0); Eosinophils % (auto) 2.5 % (0.0-7.0); Lymphocytes % (auto) 38.2 % (10.0-50.0); Mean Corpuscular Hemoglobin 25.6 pg (28.0-32.0); Mean Corpuscular Volume 79.9 fL (80.0-100.0); Monocytes % (auto) 9.8 % (0.0-12.0); Neutrophils # (auto) 3.1 10 ^3/uL (1.6-8.6); Neutrophils % (auto) 49.3 % (37.0-80.0); Red Blood Cells 2.92 10^6/uL (4.0-5.20); Red Cell Distribution Width 15.5 % (11.8-14.3)
[2023-03-02 08:48] LABS: Anion Gap 9 (5-15); Carbon Dioxide 20 mmol/L (20-30); Chloride 110 mmol/L (98-107); Potassium 4.9 mmol/L (3.5-5.1); Sodium 139 mmol/L (136-145)
[2023-03-02 08:49] LABS: Calcium 8.4 mg/dL (8.5-10.1)
[2023-03-02 08:54] LABS: BUN/Creatinine Ratio 22.9 (10.0-20.0); Blood Urea Nitrogen 38 mg/dL (9-23); Glucose 124 mg/dL (74-106)
[2023-03-02] MEDS ORDERED: TEMAZEPAM 15 MG CAP PO PRN (10:15)
[2023-03-02 12:00] VITALS: BP 143/79; PULSE 85; RESP 18; TEMP 98.3; O2SAT 98
[2023-03-02] MEDS: ASPirin-EC 81 mg tab PO SCH (12:24)
[2023-03-02] MEDS: LORazepam 2MG/ML-1ML VIAL IV PRN ×2 (12:24→21:05)
[2023-03-02] MEDS: cefTRIAXone 1GM/50ML D5W 50 ML IV SCH (12:24)
[2023-03-02] MEDS: ENOXAPARIN SOD 30 MG/0.3 ML SYRINGE SC SCH (12:24)
[2023-03-02] MEDS: LISINOPRIL 10 MG TAB PO SCH (12:25)
[2023-03-02] MEDS: METOPROLOL TARTRATE 25 MG TAB PO SCH ×2 (12:30→21:04)
[2023-03-02 14:05] VITALS: BP 127/60; PULSE 81; RESP 18; TEMP 99; O2SAT 98
[2023-03-02] MEDS ORDERED: IBUPROFEN 600 MG TAB PO PRN (14:30)
[2023-03-02 20:00] VITALS: PULSE 82
[2023-03-02] MEDS: ATORVASTATIN 20 MG TAB PO SCH (20:58)
[2023-03-02] MEDS: HYDROcodone-ACET 5/325MG TAB PO PRN (20:58)
[2023-03-02 22:00] VITALS: BP 144/79; PULSE 83; RESP 17; TEMP 98; O2SAT 95
[2023-03-02] MEDS ORDERED: INSULIN LANTUS (GLARGINE) 1 /0.01ml (100units/ml) SC SCH (22:00)
[2023-03-03 05:00] VITALS: BP 137/81; PULSE 79; RESP 18; TEMP 97.8; O2SAT 100
[2023-03-03] MEDS: ACCU-CHEK COMFORT CURVE STRIP VI SCH ×2 (06:17→12:12)
[2023-03-03] MEDS: InsuLIN REG 1unit/0.01ml Soln (100units/ml) SC SCH ×2 (06:18→12:13)
[2023-03-03] MEDS: hydrOXYzine 25 MG TAB or CAP PO SCH ×2 (06:18→14:00)
[2023-03-03] MEDS: HYDROcodone-ACET 5/325MG TAB PO PRN ×2 (06:19→13:08)
[2023-03-03] MEDS: FUROSEMIDE 20 MG/2 ML VIAL IV SCH (06:20)
[2023-03-03] MEDS: LORazepam 2MG/ML-1ML VIAL IV PRN (06:22)
[2023-03-03 08:00] VITALS: PULSE 71; PULSE 76; RESP 16; O2SAT 97
[2023-03-03 09:00] VITALS: BP 137/75; PULSE 76; RESP 16; TEMP 97.7; O2SAT 97
[2023-03-03] MEDS: cefTRIAXone 1GM/50ML D5W 50 ML IV SCH (09:32)
[2023-03-03] MEDS: LISINOPRIL 10 MG TAB PO SCH (09:33)
[2023-03-03] MEDS: ASPirin-EC 81 mg tab PO SCH (09:33)
[2023-03-03] MEDS: METOPROLOL TARTRATE 25 MG TAB PO SCH (09:33)
[2023-03-03] MEDS: ENOXAPARIN SOD 30 MG/0.3 ML SYRINGE SC SCH (09:34)
[2023-03-03] MEDS ORDERED: INSULIN LANTUS (GLARGINE) 1 /0.01ml (100units/ml) SC SCH (12:15)
[2023-03-03 16:07] VITALS: BP 123/69; PULSE 75; RESP 19; TEMP 97.8; O2SAT 97
[2023-03-05] MEDS ORDERED: LEVO500T91 PO (09:54)
[2023-03-05] MEDS ORDERED: FLUC200T PO (09:59)
== END 2023-03-03 16:30 | disposition home or self-care (01) | DRG 203 ==
LOC: ER 14:56 → EDBD 14:56 → TELE 18:14 → TELE-CENTR 03-01 23:02
PROVIDERS: ADMIT Nurse Practitioner Family; ATTEND Internal Medicine
DX: M94.0 Chondrocostal junction syndrome [Tietze] (principal); N17.0 Acute kidney failure with tubular necrosis; I50.41 Acute combined systolic (congestive) and diastolic (congestive) heart failure; E44.0 Moderate protein-calorie malnutrition; N17.9 Acute kidney failure, unspecified; N30.01 Acute cystitis with hematuria; E10.9 Type 1 diabetes mellitus without complications; E78.5 Hyperlipidemia, unspecified; F41.9 Anxiety disorder, unspecified; E10.22 Type 1 diabetes mellitus with diabetic chronic kidney disease; F41.1 Generalized anxiety disorder; I13.0 Hypertensive heart and chronic kidney disease with heart failure and stage 1 through stage 4 chronic kidney disease, or unspecified chronic kidney disease; N18.32 Chronic kidney disease, stage 3b; Z79.4 Long term (current) use of insulin; Z91.148 Patient's other noncompliance with medication regimen for other reason; Z68.22 Body mass index [BMI] 22.0-22.9, adult
CPT/HCPCS: 36415; 70450; 71045; 80048; 80053; 80061; 80307; 81001; 82962; 83036; 83540; 83550; 83605; 83690; 83880; 84439; 84443; 84484; 85025; 85652; 86141; 87086; 87088; 87186; 93005; 93306; G0378; J0696; J1815; J2405

== ENCOUNTER 2023-06-04 09:50 | Inpatient (IN) | payer MEDICAID ==
[~2023-06-04] VITALS: Ht 171.4 cm; Wt 73.0 kg
[~2023-06-04 09:50] MED LIST changes: -ACET500T58 PO; -BACL20TA PO; -BLOO1KIT60 XX; -DOXY-448 PO; +FERR325T20 PO; +FLUC200T PO; -GLIP5TAB12 PO; -HYDR-4902 PO; -IBUP-1454 PO; -INSU-567 XX; -LANC-347 XX; +LEVO500T91 PO; -METF-372 PO
[2023-06-04 10:31] LABS: Basophils # (auto) 0 10 ^3/uL (0-0.2); Eosinophils # (auto) 0.3 10 ^3/uL (0-0.8); Monocytes # (auto) 0.7 10 ^3/uL (0-1.3); Red Cell Distribution Width 15.4 % (11.8-14.3)
[2023-06-04 10:33] LABS: Basophils % (auto) 0.7 % (0.0-2.0); Eosinophils % (auto) 4.8 % (0.0-7.0); Hematocrit 32.1 % (36.0-46.0); Lymphocytes # (auto) 1.7 10 ^3/uL (0.4-5.4); Lymphocytes % (auto) 23.3 % (10.0-50.0); Mean Corpuscular Hemoglobin 24.4 pg (28.0-32.0); Mean Corpuscular Volume 78.4 fL (80.0-100.0); Monocytes % (auto) 9.1 % (0.0-12.0); Neutrophils # (auto) 4.5 10 ^3/uL (1.6-8.6); Neutrophils % (auto) 62.1 % (37.0-80.0); Red Blood Cells 4.09 10^6/uL (4.0-5.20); White Blood Cell 7.2 10^3/uL (4.4-10.8)
[2023-06-04 10:41] LABS: Chloride 113 mmol/L (98-107); Potassium 4.3 mmol/L (3.5-5.1); Sodium 143 mmol/L (136-145)
[2023-06-04 10:42] LABS: Anion Gap 8 (5-15); Calcium 8.2 mg/dL (8.7-10.4); Carbon Dioxide 22 mmol/L (20-30)
[2023-06-04 10:43] VITALS: O2SAT 96
[2023-06-04] MEDS ORDERED: MORPHINE SULFATE 4 MG/ML SYR/VIAL IV ONE (10:45)
[2023-06-04] MEDS ORDERED: ONDANSETRON HCL 4 MG/2 ML VIAL IV ONE (10:45)
[2023-06-04 10:47] LABS: BUN/Creatinine Ratio 21.4 (10.0-20.0); Blood Urea Nitrogen 28 mg/dL (9-23); Glucose 137 mg/dL (74-106)
[2023-06-04 11:21] LABS: Urine Epithelial Cast None Seen /hpf (<5)
[2023-06-04] MEDS ORDERED: ONDANSETRON HCL 4 MG/2 ML VIAL IV PRN (11:30)
[2023-06-04] MEDS ORDERED: MORPHINE SULFATE INJ 2 MG/ml SYRG IV PRN (11:30)
[2023-06-04] MEDS ORDERED: ACETAMINOPHEN 325 MG TAB PO PRN (11:30)
[2023-06-04] MEDS ORDERED: METOPROLOL TARTRATE 25 MG TAB PO ONE (11:30)
[2023-06-04] MEDS ORDERED: FUROSEMIDE 40 MG/4 ML VIAL IV ONE (11:30)
[2023-06-04] MEDS ORDERED: NITROGLYCERIN 0.4 MG SL TAB SL PRN (11:30)
[2023-06-04] MEDS ORDERED: ASPirin-EC 325mg tab PO ONE (11:30)
[2023-06-04] MEDS ORDERED: CLOPIDOGREL 300 MG TAB PO ONE (11:30)
[2023-06-04 11:45] LABS: Urine Bacteria NONE SEEN /hpf (None Seen); Urine Blood 1+ /uL (Negative); Urine Budding Yeast MODERATE /hpf (None Seen); Urine Clarity HAZY (Clear); Urine Color Colorless (Yellow); Urine Protein, UAD 3+ (Negative); Urine Specific Gravity 1.014 (1.001-1.035); Urine Urobilinogen Normal (Negative); Urine WBC 404 /hpf (0 - 5); Urine WBC Clumps PRESENT /hpf (None Seen); Urine pH 6.5 (5.0-8.0)
[2023-06-04 11:50] LABS: INR 1.04 (0.9-1.15); Partial Thromboplastin Time 25.1 SEC (24.5-34.5); Prothrombin Time 10.9 sec (9.3-11.8)
[2023-06-04] MEDS ORDERED: DEXTROSE (50%) 50ML SYRG IV PRN (12:00)
[2023-06-04] MEDS ORDERED: FENO145T27 PO (12:02)
[2023-06-04] MEDS ORDERED: LISI10TA34 PO (12:02)
[2023-06-04] MEDS ORDERED: ESCI1TAB36 PO (12:02)
[2023-06-04] MEDS: HEPARIN DRIP/D5W 100UNITS/ML 250 ML IV SCH ×2 (12:10→19:00)
[2023-06-04] MEDS ORDERED: CEFTRIAXONE SODIUM 2 GM in D5W 5% 100 ML IV ONE (12:15)
[2023-06-04] MEDS ORDERED: PANTOPRAZOLE 40 MG/10 ML VIAL INJ IV ONE (12:30)
[2023-06-04] MEDS: HYDROcodone-ACET 5/325MG TAB PO PRN ×2 (16:32→23:44)
[2023-06-04] MEDS: ACCU-CHEK COMFORT CURVE STRIP VI SCH ×2 (17:00→21:38)
[2023-06-04] MEDS: InsuLIN REG 1unit/0.01ml Soln (100units/ml) SC SCH ×2 (17:00→22:15)
[2023-06-04] MEDS: hydrOXYzine 25 MG TAB or CAP PO SCH ×2 (17:46→21:37)
[2023-06-04] MEDS: FUROSEMIDE 20 MG/2 ML VIAL IV SCH (17:51)
[2023-06-04 18:41] LABS: INR 1.06 (0.9-1.15); Partial Thromboplastin Time 34.9 SEC (24.5-34.5); Prothrombin Time 11.1 sec (9.3-11.8)
[2023-06-04] MEDS ORDERED: HEPARIN DRIP/D5W 100UNITS/ML 250 ML IV SCH (19:00)
[2023-06-04 20:10] VITALS: PULSE 85; O2SAT 96
[2023-06-04] MEDS: MORPHINE SULFATE INJ 2 MG/ml SYRG IV PRN (20:18)
[2023-06-04] MEDS: METOPROLOL TARTRATE 25 MG TAB PO SCH (21:36)
[2023-06-04] MEDS: ATORVASTATIN 20 MG TAB PO SCH (21:38)
[2023-06-04] MEDS ORDERED: OMEP1CAP70 PO (23:49)
[2023-06-04] MEDS ORDERED: METH-1181 PO (23:49)
[2023-06-04] MEDS ORDERED: HYDR12.59 PO (23:49)
[2023-06-04] MEDS ORDERED: ASCO500T6 PO (23:49)
[2023-06-04] MEDS ORDERED: METF-372 PO (23:49)
[2023-06-04] MEDS ORDERED: GLIP5TAB12 PO (23:49)
[2023-06-04] MEDS ORDERED: GAB100C PO (23:49)
[2023-06-04] MEDS ORDERED: METO-289 PO (23:49)
[2023-06-04] MEDS ORDERED: FURO40TA4 PO (23:49)
[2023-06-04 23:50] VITALS: BP 144/94; PULSE 82; RESP 20; TEMP 97.7; O2SAT 96
[2023-06-05] VITALS (12 sets, daily range): BP systolic 147–206; BP diastolic 85–117; PULSE 73–96; RESP 12–20; TEMP 97.1–98.3; O2SAT 92–99
[2023-06-05 01:45] LABS: INR 1.06 (0.9-1.15); Prothrombin Time 11.1 sec (9.3-11.8)
[2023-06-05] MEDS: MORPHINE SULFATE INJ 2 MG/ml SYRG IV PRN ×3 (04:18→19:00)
[2023-06-05 05:15] LABS: Basophils # (auto) 0 10 ^3/uL (0-0.2); Eosinophils # (auto) 0.3 10 ^3/uL (0-0.8); Lymphocytes # (auto) 2.4 10 ^3/uL (0.4-5.4); Mean Corpuscular Hemoglobin 24.9 pg (28.0-32.0); Mean Corpuscular Hgb Conc. 31.4 g/dL (32.0-36.0); Monocytes # (auto) 0.7 10 ^3/uL (0-1.3)
[2023-06-05 05:17] LABS: Basophils % (auto) 0.6 % (0.0-2.0); Eosinophils % (auto) 4.4 % (0.0-7.0); Hemoglobin 8.8 g/dL (12.2-16.2); Lymphocytes % (auto) 37.1 % (10.0-50.0); Mean Corpuscular Volume 79.1 fL (80.0-100.0); Monocytes % (auto) 11.4 % (0.0-12.0); Neutrophils % (auto) 46.5 % (37.0-80.0); Red Blood Cells 3.54 10^6/uL (4.0-5.20); Red Cell Distribution Width 15.1 % (11.8-14.3); White Blood Cell 6.4 10^3/uL (4.4-10.8)
[2023-06-05 05:39] LABS: Alkaline Phosphatase 171 U/L (46-116); Anion Gap 5 (5-15); Aspartate Aminotransferase 13 U/L (13-40); BUN/Creatinine Ratio 18.1 (10.0-20.0); Blood Urea Nitrogen 28 mg/dL (9-23); Calcium 8.3 mg/dL (8.7-10.4); Carbon Dioxide 24 mmol/L (20-30); Chloride 111 mmol/L (98-107); Glucose 72 mg/dL (74-106); Potassium 4.3 mmol/L (3.5-5.1); Sodium 140 mmol/L (136-145)
[2023-06-05 05:40] LABS: Bilirubin, Total < 0.2 mg/dL (0.2-1.0); Total Protein 6.2 g/dL (5.7-8.2)
[2023-06-05 05:47] LABS: Alanine Aminotransferase < 9 U/L (7-40)
[2023-06-05] MEDS: hydrOXYzine 25 MG TAB or CAP PO SCH ×4 (05:51→21:36)
[2023-06-05] MEDS: FUROSEMIDE 20 MG/2 ML VIAL IV SCH ×2 (05:52→15:31)
[2023-06-05] MEDS: HYDROcodone-ACET 5/325MG TAB PO PRN ×3 (05:52→21:36)
[2023-06-05] MEDS: ACCU-CHEK COMFORT CURVE STRIP VI SCH ×4 (06:01→21:40)
[2023-06-05] MEDS: HEPARIN DRIP/D5W 100UNITS/ML 250 ML IV SCH ×2 (06:01→14:31)
[2023-06-05] MEDS: InsuLIN REG 1unit/0.01ml Soln (100units/ml) SC SCH ×4 (06:01→21:45)
[2023-06-05 08:25] LABS: INR 1.08 (0.9-1.15); Partial Thromboplastin Time 56.8 SEC (24.5-34.5); Prothrombin Time 11.3 sec (9.3-11.8)
[2023-06-05] MEDS ORDERED: SODIUM CHLORIDE 0.9% 1,000 ML IV ONE (08:30)
[2023-06-05] MEDS ORDERED: SODIUM CHLORIDE 0.9% 1,000 ML IV SCH (08:30)
[2023-06-05] MEDS: cefTRIAXone 1GM/50ML D5W 50 ML IV SCH (09:00)
[2023-06-05] MEDS ORDERED: CLOPIDOGREL BISULFATE 75 MG TAB PO SCH (10:00)
[2023-06-05] MEDS: PANTOPRAZOLE 40 MG/10 ML VIAL INJ IV SCH (10:00)
[2023-06-05] MEDS ORDERED: LISINOPRIL 10 MG TAB PO SCH ×2 (10:00→22:00)
[2023-06-05] MEDS: Escitalopram 10 MG Tablet PO SCH (10:00)
[2023-06-05] MEDS: ASPirin-EC 81 mg tab PO SCH (10:00)
[2023-06-05] MEDS: METOPROLOL TARTRATE 25 MG TAB PO SCH ×2 (10:00→21:35)
[2023-06-05 11:10] LABS: INR 1.04 (0.9-1.15); Partial Thromboplastin Time 33.8 SEC (24.5-34.5); Prothrombin Time 10.9 sec (9.3-11.8)
[2023-06-05] MEDS ORDERED: ANGIOMAX 250 MG VIAL IV ONE (12:38)
[2023-06-05] MEDS ORDERED: HEPARIN SODIUM (PORCINE) 5000 UNITS/ML 1ML VIAL ONE (12:39)
[2023-06-05] MEDS ORDERED: fentaNYL CITRATE 100 MCG/2 ML VL ONE (12:39)
[2023-06-05] MEDS ORDERED: VERAPAMIL 2.5MG/ML INJ 2ML VIAL IV ONE (12:39)
[2023-06-05] MEDS ORDERED: MIDAZOLAM HCL 2MG/2ML 2ml VIAL (1mg/ml) ONE (12:39)
[2023-06-05] MEDS ORDERED: SODIUM CHL 0.9% 0 ML ONE (12:40)
[2023-06-05] MEDS ORDERED: LIDOCAINE 2%HCL (LOCAL ANESTH.) INJ 20ML MDV ONE (12:41)
[2023-06-05] MEDS ORDERED: IODIXANOL 320MG/ML 100ML BTL IV ONE (12:41)
[2023-06-05] MEDS: GABAPENTIN 100 MG CAP PO SCH ×2 (14:00→21:36)
[2023-06-05] MEDS ORDERED: cloNIDine HCL 0.1 MG TAB ONE (14:38)
[2023-06-05] MEDS: cloNIDine HCL 0.1 MG TAB PO SCH (14:42)
[2023-06-05] MEDS: hydrALAZINE HCL 25 MG TAB PO PRN (15:31)
[2023-06-05] MEDS ORDERED: SODI10PA PO (15:47)
[2023-06-05] MEDS ORDERED: NIFE90TA75 PO (15:47)
[2023-06-05] MEDS ORDERED: DAPA1TAB4 PO (15:47)
[2023-06-05] MEDS ORDERED: METOPROLOL TARTRATE 25 MG TAB PO ONE (16:45)
[2023-06-05] MEDS ORDERED: LISINOPRIL 10 MG TAB PO ONE (16:45)
[2023-06-05 20:18] LABS: INR 1.04 (0.9-1.15); Partial Thromboplastin Time 54.5 SEC (24.5-34.5); Prothrombin Time 10.9 sec (9.3-11.8)
[2023-06-05] MEDS: ATORVASTATIN 20 MG TAB PO SCH (21:35)
[2023-06-06] VITALS (7 sets, daily range): BP systolic 130–143; BP diastolic 71–85; PULSE 76–88; RESP 16–19; TEMP 97.7–98.9; O2SAT 94–96
[2023-06-06] MEDS: MORPHINE SULFATE INJ 2 MG/ml SYRG IV PRN ×3 (02:23→18:08)
[2023-06-06 02:24] LABS: INR 1.08 (0.9-1.15); Prothrombin Time 11.3 sec (9.3-11.8)
[2023-06-06 05:21] LABS: Basophils # (auto) 0 10 ^3/uL (0-0.2); Basophils % (auto) 0.4 % (0.0-2.0); Eosinophils # (auto) 0.3 10 ^3/uL (0-0.8); Eosinophils % (auto) 4.4 % (0.0-7.0); Hematocrit 27.7 % (36.0-46.0); Hemoglobin 8.8 g/dL (12.2-16.2); Mean Corpuscular Hgb Conc. 31.9 g/dL (32.0-36.0)
[2023-06-06 05:23] LABS: Lymphocytes % (auto) 29.3 % (10.0-50.0); Mean Corpuscular Hemoglobin 24.8 pg (28.0-32.0); Mean Corpuscular Volume 77.8 fL (80.0-100.0); Monocytes # (auto) 0.8 10 ^3/uL (0-1.3); Monocytes % (auto) 11.7 % (0.0-12.0); Neutrophils # (auto) 3.6 10 ^3/uL (1.6-8.6); Neutrophils % (auto) 54.2 % (37.0-80.0); Red Blood Cells 3.56 10^6/uL (4.0-5.20); White Blood Cell 6.7 10^3/uL (4.4-10.8)
[2023-06-06 05:26] LABS: Chloride 110 mmol/L (98-107); Potassium 4.6 mmol/L (3.5-5.1); Sodium 138 mmol/L (136-145)
[2023-06-06 05:27] LABS: Anion Gap 4 (5-15); Carbon Dioxide 24 mmol/L (20-30)
[2023-06-06 05:28] LABS: Calcium 8.4 mg/dL (8.5-10.1)
[2023-06-06 05:32] LABS: Glucose 190 mg/dL (74-106)
[2023-06-06 05:33] LABS: BUN/Creatinine Ratio 16.4 (10.0-20.0); Blood Urea Nitrogen 31 mg/dL (9-23)
[2023-06-06] MEDS: FUROSEMIDE 20 MG/2 ML VIAL IV SCH (05:35)
[2023-06-06] MEDS: cloNIDine HCL 0.1 MG TAB PO SCH ×3 (05:35→21:39)
[2023-06-06] MEDS: hydrOXYzine 25 MG TAB or CAP PO SCH ×4 (05:36→21:39)
[2023-06-06] MEDS: HYDROcodone-ACET 5/325MG TAB PO PRN ×3 (05:36→20:30)
[2023-06-06] MEDS: GABAPENTIN 100 MG CAP PO SCH ×3 (05:36→21:39)
[2023-06-06] MEDS: ACCU-CHEK COMFORT CURVE STRIP VI SCH ×3 (06:38→18:39)
[2023-06-06] MEDS: InsuLIN REG 1unit/0.01ml Soln (100units/ml) SC SCH ×4 (06:38→21:49)
[2023-06-06 07:09] LABS: % Iron Saturation 6.9 % (15-50)
[2023-06-06 09:20] LABS: INR 1.07 (0.9-1.15); Partial Thromboplastin Time 60.6 SEC (24.5-34.5); Prothrombin Time 11.2 sec (9.3-11.8)
[2023-06-06] MEDS: PANTOPRAZOLE 40 MG/10 ML VIAL INJ IV SCH (09:24)
[2023-06-06] MEDS: ASPirin-EC 81 mg tab PO SCH (09:29)
[2023-06-06] MEDS: METOPROLOL TARTRATE 25 MG TAB PO SCH ×2 (09:29→21:39)
[2023-06-06] MEDS: cefTRIAXone 1GM/50ML D5W 50 ML IV SCH (09:51)
[2023-06-06] MEDS: Escitalopram 10 MG Tablet PO SCH (10:00)
[2023-06-06] MEDS: ENOXAPARIN SOD 60 MG/0.6 ML SYRINGE SC SCH (11:44)
[2023-06-06] MEDS: PANTOPRAZOLE 40 MG TAB PO SCH (11:48)
[2023-06-06] MEDS: CLINDAMYCIN 600MG IV 50 ML IV SCH ×2 (14:59→21:40)
[2023-06-06] MEDS: DOCUSATE SOD 100 MG CAP PO PRN (20:30)
[2023-06-06] MEDS: ATORVASTATIN 20 MG TAB PO SCH (21:37)
[2023-06-07] MEDS: ENOXAPARIN SOD 60 MG/0.6 ML SYRINGE SC SCH (01:56)
[2023-06-07] MEDS: MORPHINE SULFATE INJ 2 MG/ml SYRG IV PRN ×4 (01:57→21:03)
[2023-06-07] MEDS: ACCU-CHEK COMFORT CURVE STRIP VI SCH ×5 (02:14→22:21)
[2023-06-07] MEDS: InsuLIN REG 1unit/0.01ml Soln (100units/ml) SC SCH ×4 (06:33→22:20)
[2023-06-07 06:42] LABS: Basophils # (auto) 0 10 ^3/uL (0-0.2); Eosinophils # (auto) 0.2 10 ^3/uL (0-0.8); Hemoglobin 8.7 g/dL (12.2-16.2); Lymphocytes # (auto) 1.8 10 ^3/uL (0.4-5.4); Monocytes # (auto) 0.8 10 ^3/uL (0-1.3); Red Blood Cells 3.46 10^6/uL (4.0-5.20)
[2023-06-07 06:45] LABS: Basophils % (auto) 0.3 % (0.0-2.0); Eosinophils % (auto) 3.2 % (0.0-7.0); Hematocrit 27.3 % (36.0-46.0); Lymphocytes % (auto) 27.6 % (10.0-50.0); Mean Corpuscular Hemoglobin 25.1 pg (28.0-32.0); Mean Corpuscular Hgb Conc. 31.8 g/dL (32.0-36.0); Mean Corpuscular Volume 79.1 fL (80.0-100.0); Monocytes % (auto) 12.5 % (0.0-12.0); Neutrophils # (auto) 3.6 10 ^3/uL (1.6-8.6); Neutrophils % (auto) 56.4 % (37.0-80.0); Red Cell Distribution Width 15.2 % (11.8-14.3); White Blood Cell 6.5 10^3/uL (4.4-10.8)
[2023-06-07 06:46] LABS: Anion Gap 6 (5-15); Calcium 8.1 mg/dL (8.7-10.4); Carbon Dioxide 22 mmol/L (20-30); Chloride 109 mmol/L (98-107); Potassium 4.8 mmol/L (3.5-5.1); Sodium 137 mmol/L (136-145)
[2023-06-07] MEDS: hydrOXYzine 25 MG TAB or CAP PO SCH ×4 (06:46→22:46)
[2023-06-07] MEDS: cloNIDine HCL 0.1 MG TAB PO SCH ×3 (06:46→22:23)
[2023-06-07] MEDS: GABAPENTIN 100 MG CAP PO SCH ×3 (06:46→22:22)
[2023-06-07] MEDS: CLINDAMYCIN 600MG IV 50 ML IV SCH ×3 (06:47→22:22)
[2023-06-07 06:52] LABS: BUN/Creatinine Ratio 17.3 (10.0-20.0); Glucose 135 mg/dL (74-106)
[2023-06-07 06:54] LABS: Blood Urea Nitrogen 44 mg/dL (9-23)
[2023-06-07 08:05] VITALS: PULSE 77
[2023-06-07 08:43] VITALS: BP 109/72; PULSE 83; RESP 18; TEMP 98; O2SAT 91
[2023-06-07] MEDS: PANTOPRAZOLE 40 MG TAB PO SCH (10:00)
[2023-06-07] MEDS: Escitalopram 10 MG Tablet PO SCH (10:00)
[2023-06-07] MEDS: ASPirin-EC 81 mg tab PO SCH (10:00)
[2023-06-07] MEDS: cefTRIAXone 1GM/50ML D5W 50 ML IV SCH (10:00)
[2023-06-07] MEDS: METOPROLOL TARTRATE 25 MG TAB PO SCH ×2 (10:02→22:22)
[2023-06-07 12:43] VITALS: BP 145/78; PULSE 78; RESP 16; TEMP 98.9; O2SAT 92
[2023-06-07 16:43] VITALS: BP 105/64; PULSE 97; RESP 16; TEMP 98; O2SAT 97
[2023-06-07] MEDS ORDERED: SODIUM CHLORIDE 0.9% 1,000 ML IV ONE (17:15)
[2023-06-07 20:00] VITALS: PULSE 84
[2023-06-07 22:00] VITALS: BP 150/91; PULSE 84; RESP 22; TEMP 100; O2SAT 99
[2023-06-07] MEDS: ATORVASTATIN 20 MG TAB PO SCH (22:23)
[2023-06-07] MEDS: HYDROcodone-ACET 5/325MG TAB PO PRN (22:31)
[2023-06-07] MEDS: DOCUSATE SOD 100 MG CAP PO PRN (22:31)
[2023-06-08] VITALS (7 sets, daily range): BP systolic 127–140; BP diastolic 72–78; PULSE 70–79; RESP 15–20; TEMP 97.9–98.6; O2SAT 91–94
[2023-06-08] MEDS: MORPHINE SULFATE INJ 2 MG/ml SYRG IV PRN ×2 (06:12→17:40)
[2023-06-08] MEDS: CLINDAMYCIN 600MG IV 50 ML IV SCH ×3 (06:15→22:48)
[2023-06-08] MEDS: GABAPENTIN 100 MG CAP PO SCH ×3 (06:20→22:06)
[2023-06-08] MEDS: hydrOXYzine 25 MG TAB or CAP PO SCH ×4 (06:21→22:48)
[2023-06-08] MEDS: InsuLIN REG 1unit/0.01ml Soln (100units/ml) SC SCH ×4 (06:22→22:08)
[2023-06-08] MEDS: ACCU-CHEK COMFORT CURVE STRIP VI SCH ×4 (06:23→22:08)
[2023-06-08 06:32] LABS: Anion Gap 8 (5-15); Carbon Dioxide 19 mmol/L (20-30); Chloride 109 mmol/L (98-107); Potassium 4.8 mmol/L (3.5-5.1); Sodium 136 mmol/L (136-145)
[2023-06-08 06:33] LABS: Calcium 8.4 mg/dL (8.5-10.1)
[2023-06-08 06:38] LABS: BUN/Creatinine Ratio 18.1 (10.0-20.0); Blood Urea Nitrogen 51 mg/dL (9-23); Glucose 98 mg/dL (74-106)
[2023-06-08] MEDS ORDERED: SODIUM CHLORIDE 0.9% 1,000 ML IV ONE (08:15)
[2023-06-08] MEDS: METOPROLOL TARTRATE 25 MG TAB PO SCH ×2 (08:55→22:07)
[2023-06-08] MEDS: PANTOPRAZOLE 40 MG TAB PO SCH (08:56)
[2023-06-08] MEDS: ASPirin-EC 81 mg tab PO SCH (08:56)
[2023-06-08] MEDS: cefTRIAXone 1GM/50ML D5W 50 ML IV SCH (08:56)
[2023-06-08] MEDS: ENOXAPARIN SOD 80 MG/0.8ML SYRINGE SC SCH (08:56)
[2023-06-08] MEDS: HYDROcodone-ACET 5/325MG TAB PO PRN ×3 (08:56→22:06)
[2023-06-08] MEDS: Escitalopram 10 MG Tablet PO SCH (08:58)
[2023-06-08] MEDS: cloNIDine HCL 0.1 MG TAB PO SCH ×2 (10:00→22:06)
[2023-06-08] MEDS ORDERED: cefTRIAXone 1GM/50ML D5W 50 ML IV ONE (10:15)
[2023-06-08] MEDS: FLORASTOR (S. BOULARDII) 250 MG CAP PO SCH (12:13)
[2023-06-08] MEDS: IRON SUCROSE COMPLEX 100 ML IV SCH (12:15)
[2023-06-08] MEDS: ATORVASTATIN 20 MG TAB PO SCH (22:05)
[2023-06-09] VITALS (8 sets, daily range): BP systolic 115–143; BP diastolic 67–84; PULSE 68–82; RESP 15–20; TEMP 98.2–98.5; O2SAT 94–95
[2023-06-09] MEDS: MORPHINE SULFATE INJ 2 MG/ml SYRG IV PRN ×3 (01:12→18:07)
[2023-06-09] MEDS: hydrOXYzine 25 MG TAB or CAP PO SCH ×4 (05:31→23:03)
[2023-06-09] MEDS: GABAPENTIN 100 MG CAP PO SCH ×3 (05:31→21:43)
[2023-06-09] MEDS: CLINDAMYCIN 600MG IV 50 ML IV SCH ×3 (05:31→22:00)
[2023-06-09] MEDS: HYDROcodone-ACET 5/325MG TAB PO PRN ×3 (05:40→21:44)
[2023-06-09] MEDS: ACCU-CHEK COMFORT CURVE STRIP VI SCH ×4 (06:57→23:03)
[2023-06-09] MEDS: InsuLIN REG 1unit/0.01ml Soln (100units/ml) SC SCH ×4 (06:57→22:00)
[2023-06-09 07:07] LABS: Anion Gap 7 (5-15); Carbon Dioxide 19 mmol/L (20-30); Chloride 109 mmol/L (98-107); Potassium 4.9 mmol/L (3.5-5.1); Sodium 135 mmol/L (136-145)
[2023-06-09 07:08] LABS: Calcium 8.4 mg/dL (8.5-10.1)
[2023-06-09 07:13] LABS: Blood Urea Nitrogen 52 mg/dL (9-23); Glucose 118 mg/dL (74-106)
[2023-06-09] MEDS: cefTRIAXone 1GM/50ML D5W 50 ML IV SCH (09:25)
[2023-06-09] MEDS: Escitalopram 10 MG Tablet PO SCH (10:00)
[2023-06-09] MEDS: cloNIDine HCL 0.1 MG TAB PO SCH ×2 (10:56→23:03)
[2023-06-09] MEDS: FLORASTOR (S. BOULARDII) 250 MG CAP PO SCH (10:56)
[2023-06-09] MEDS: METOPROLOL TARTRATE 25 MG TAB PO SCH (10:56)
[2023-06-09] MEDS: ASPirin-EC 81 mg tab PO SCH (10:56)
[2023-06-09] MEDS: PANTOPRAZOLE 40 MG TAB PO SCH (10:56)
[2023-06-09] MEDS: ENOXAPARIN SOD 80 MG/0.8ML SYRINGE SC SCH (11:42)
[2023-06-09] MEDS: IRON SUCROSE COMPLEX 100 ML IV SCH (12:00)
[2023-06-09] MEDS ORDERED: FUROSEMIDE 100 MG/10ML VIAL IV ONE (14:45)
[2023-06-09] MEDS: ATORVASTATIN 20 MG TAB PO SCH (21:43)
[2023-06-10] VITALS (7 sets, daily range): BP systolic 103–131; BP diastolic 56–70; PULSE 69–86; RESP 17–20; TEMP 97.6–98.5; O2SAT 94–100
[2023-06-10] MEDS: MORPHINE SULFATE INJ 2 MG/ml SYRG IV PRN ×3 (00:21→23:20)
[2023-06-10] MEDS: METOPROLOL TARTRATE 25 MG TAB PO SCH ×3 (00:24→22:00)
[2023-06-10] MEDS: HYDROcodone-ACET 5/325MG TAB PO PRN ×3 (04:44→20:26)
[2023-06-10] MEDS: GABAPENTIN 100 MG CAP PO SCH ×3 (05:32→21:38)
[2023-06-10] MEDS: hydrOXYzine 25 MG TAB or CAP PO SCH ×4 (05:32→21:53)
[2023-06-10] MEDS: CLINDAMYCIN 600MG IV 50 ML IV SCH ×3 (05:34→21:42)
[2023-06-10 05:55] LABS: Urine Bacteria NONE SEEN /hpf (None Seen); Urine Blood 1+ /uL (Negative); Urine Budding Yeast FEW /hpf (None Seen); Urine Clarity HAZY (Clear); Urine Color Yellow (Yellow); Urine Hyaline Cast FEW /lpf (0 - 2); Urine Protein, UAD 2+ (Negative); Urine Specific Gravity 1.015 (1.001-1.035); Urine Urobilinogen Normal (Negative); Urine WBC 118 /hpf (0 - 5); Urine pH 5.5 (5.0-8.0)
[2023-06-10] MEDS: ACCU-CHEK COMFORT CURVE STRIP VI SCH ×4 (06:33→21:37)
[2023-06-10] MEDS: InsuLIN REG 1unit/0.01ml Soln (100units/ml) SC SCH ×4 (06:34→21:37)
[2023-06-10 06:53] LABS: Chloride 110 mmol/L (98-107); Potassium 4.9 mmol/L (3.5-5.1); Sodium 133 mmol/L (136-145)
[2023-06-10 06:54] LABS: Anion Gap 7 (5-15); Carbon Dioxide 16 mmol/L (20-30)
[2023-06-10 06:55] LABS: Calcium 7.9 mg/dL (8.7-10.4)
[2023-06-10 06:59] LABS: Glucose 161 mg/dL (74-106)
[2023-06-10 07:00] LABS: BUN/Creatinine Ratio 16.9 (10.0-20.0); Blood Urea Nitrogen 54 mg/dL (9-23)
[2023-06-10] MEDS ORDERED: SODIUM BICARBONATE 650 MG TAB PO ONE (07:30)
[2023-06-10] MEDS ORDERED: FUROSEMIDE 100 MG/10ML VIAL IV ONE (07:30)
[2023-06-10] MEDS ORDERED: SODIUM BICARBONATE 8.4 % INJ 50ML VIAL IV ONE (07:30)
[2023-06-10] MEDS: ENOXAPARIN SOD 80 MG/0.8ML SYRINGE SC SCH (09:19)
[2023-06-10] MEDS: cloNIDine HCL 0.1 MG TAB PO SCH ×2 (09:21→22:00)
[2023-06-10] MEDS: ASPirin-EC 81 mg tab PO SCH (09:21)
[2023-06-10] MEDS: PANTOPRAZOLE 40 MG TAB PO SCH (09:22)
[2023-06-10] MEDS: FLORASTOR (S. BOULARDII) 250 MG CAP PO SCH (09:22)
[2023-06-10] MEDS: cefTRIAXone 1GM/50ML D5W 50 ML IV SCH (09:29)
[2023-06-10] MEDS: Escitalopram 10 MG Tablet PO SCH (10:00)
[2023-06-10] MEDS: IRON SUCROSE COMPLEX 100 ML IV SCH (12:41)
[2023-06-10] MEDS: SODIUM BICARBONATE 650 MG TAB PO SCH ×3 (12:41→21:38)
[2023-06-10] MEDS: FUROSEMIDE 100 MG/10ML VIAL IV SCH (17:00)
[2023-06-10] MEDS: ATORVASTATIN 20 MG TAB PO SCH (21:38)
[2023-06-11] VITALS (7 sets, daily range): BP systolic 103–140; BP diastolic 56–76; PULSE 71–86; RESP 16–20; TEMP 97.9–98.9; O2SAT 95–98
[2023-06-11] MEDS: HYDROcodone-ACET 5/325MG TAB PO PRN ×3 (02:28→21:27)
[2023-06-11 05:34] LABS: Chloride 110 mmol/L (98-107); Potassium 4.9 mmol/L (3.5-5.1); Sodium 137 mmol/L (136-145)
[2023-06-11 05:35] LABS: Anion Gap 7 (5-15); Calcium 8.1 mg/dL (8.7-10.4); Carbon Dioxide 20 mmol/L (20-30)
[2023-06-11 05:40] LABS: BUN/Creatinine Ratio 19.8 (10.0-20.0); Glucose 112 mg/dL (74-106)
[2023-06-11 05:54] LABS: Blood Urea Nitrogen 65 mg/dL (9-23)
[2023-06-11] MEDS: hydrOXYzine 25 MG TAB or CAP PO SCH ×2 (06:05→11:06)
[2023-06-11] MEDS: GABAPENTIN 100 MG CAP PO SCH ×3 (06:05→22:27)
[2023-06-11] MEDS: SODIUM BICARBONATE 650 MG TAB PO SCH ×4 (06:05→22:25)
[2023-06-11] MEDS: FUROSEMIDE 100 MG/10ML VIAL IV SCH ×2 (06:06→18:20)
[2023-06-11] MEDS: ACCU-CHEK COMFORT CURVE STRIP VI SCH ×4 (06:12→22:00)
[2023-06-11] MEDS: CLINDAMYCIN 600MG IV 50 ML IV SCH ×3 (06:12→22:00)
[2023-06-11] MEDS: InsuLIN REG 1unit/0.01ml Soln (100units/ml) SC SCH ×4 (06:12→22:00)
[2023-06-11] MEDS: MORPHINE SULFATE INJ 2 MG/ml SYRG IV PRN ×3 (06:48→23:02)
[2023-06-11] MEDS: ASPirin-EC 81 mg tab PO SCH (08:44)
[2023-06-11] MEDS: METOPROLOL TARTRATE 25 MG TAB PO SCH ×3 (08:45→23:27)
[2023-06-11] MEDS: PANTOPRAZOLE 40 MG TAB PO SCH (08:45)
[2023-06-11] MEDS: cloNIDine HCL 0.1 MG TAB PO SCH ×2 (08:45→22:27)
[2023-06-11] MEDS: cefTRIAXone 1GM/50ML D5W 50 ML IV SCH (08:46)
[2023-06-11] MEDS: ENOXAPARIN SOD 80 MG/0.8ML SYRINGE SC SCH (08:46)
[2023-06-11] MEDS: FLORASTOR (S. BOULARDII) 250 MG CAP PO SCH (08:46)
[2023-06-11] MEDS: Escitalopram 10 MG Tablet PO SCH (08:52)
[2023-06-11] MEDS: IRON SUCROSE COMPLEX 100 ML IV SCH (11:07)
[2023-06-11] MEDS: ATORVASTATIN 20 MG TAB PO SCH (22:26)
[2023-06-12] VITALS (7 sets, daily range): BP systolic 115–137; BP diastolic 61–73; PULSE 73–82; RESP 18–20; TEMP 97.9–99.1; O2SAT 91–94
[2023-06-12] MEDS: MORPHINE SULFATE INJ 2 MG/ml SYRG IV PRN ×3 (02:47→18:36)
[2023-06-12] MEDS: FUROSEMIDE 100 MG/10ML VIAL IV SCH ×2 (05:31→18:15)
[2023-06-12] MEDS: HYDROcodone-ACET 5/325MG TAB PO PRN ×3 (05:32→21:18)
[2023-06-12] MEDS: SODIUM BICARBONATE 650 MG TAB PO SCH ×4 (05:32→21:16)
[2023-06-12] MEDS: GABAPENTIN 100 MG CAP PO SCH ×3 (05:32→21:20)
[2023-06-12 05:59] LABS: Chloride 111 mmol/L (98-107); Potassium 4.9 mmol/L (3.5-5.1); Sodium 140 mmol/L (136-145)
[2023-06-12 06:00] LABS: Anion Gap 7 (5-15); Calcium 8.6 mg/dL (8.5-10.1); Carbon Dioxide 22 mmol/L (20-30)
[2023-06-12] MEDS: CLINDAMYCIN 600MG IV 50 ML IV SCH ×2 (06:00→06:16)
[2023-06-12 06:05] LABS: BUN/Creatinine Ratio 18.6 (10.0-20.0); Blood Urea Nitrogen 59 mg/dL (9-23); Glucose 106 mg/dL (74-106)
[2023-06-12] MEDS: InsuLIN REG 1unit/0.01ml Soln (100units/ml) SC SCH ×4 (06:12→21:07)
[2023-06-12] MEDS: ACCU-CHEK COMFORT CURVE STRIP VI SCH ×4 (06:15→21:07)
[2023-06-12] MEDS: Escitalopram 10 MG Tablet PO SCH (08:34)
[2023-06-12] MEDS: cefTRIAXone 1GM/50ML D5W 50 ML IV SCH (08:35)
[2023-06-12] MEDS: PANTOPRAZOLE 40 MG TAB PO SCH (08:35)
[2023-06-12] MEDS: FLORASTOR (S. BOULARDII) 250 MG CAP PO SCH (08:35)
[2023-06-12] MEDS: METOPROLOL TARTRATE 25 MG TAB PO SCH ×2 (08:36→21:18)
[2023-06-12] MEDS: ASPirin-EC 81 mg tab PO SCH (08:36)
[2023-06-12] MEDS: ENOXAPARIN SOD 80 MG/0.8ML SYRINGE SC SCH (08:37)
[2023-06-12] MEDS: cloNIDine HCL 0.1 MG TAB PO SCH ×2 (10:00→21:17)
[2023-06-12] MEDS: IRON SUCROSE COMPLEX 100 ML IV SCH (12:00)
[2023-06-12 12:43] LABS: Urine Bacteria FEW /hpf (None Seen); Urine Blood 2+ /uL (Negative); Urine Budding Yeast LOADED /hpf (None Seen); Urine Clarity CLOUDY (Clear); Urine Color Yellow (Yellow); Urine Mucus FEW (None Seen); Urine Protein, UAD 2+ (Negative); Urine Specific Gravity 1.017 (1.001-1.035); Urine Urobilinogen Normal (Negative); Urine WBC 1405 /hpf (0 - 5); Urine WBC Clumps PRESENT /hpf (None Seen); Urine pH 5.5 (5.0-8.0)
[2023-06-12 12:59] LABS: Creatinine, Urine 37.37 mg/dL (30.0-125.0)
[2023-06-12] MEDS: ATORVASTATIN 20 MG TAB PO SCH (21:15)
[2023-06-13] VITALS (7 sets, daily range): BP systolic 136–171; BP diastolic 72–85; PULSE 76–86; RESP 16–20; TEMP 97.8–98.7; O2SAT 91–94
[2023-06-13] MEDS: MORPHINE SULFATE INJ 2 MG/ml SYRG IV PRN ×4 (00:35→23:00)
[2023-06-13] MEDS: HYDROcodone-ACET 5/325MG TAB PO PRN ×3 (03:04→18:05)
[2023-06-13] MEDS: DOCUSATE SOD 100 MG CAP PO PRN (03:05)
[2023-06-13] MEDS: SODIUM BICARBONATE 650 MG TAB PO SCH ×4 (06:32→22:22)
[2023-06-13] MEDS: FUROSEMIDE 100 MG/10ML VIAL IV SCH ×2 (06:33→18:07)
[2023-06-13] MEDS: GABAPENTIN 100 MG CAP PO SCH ×3 (06:33→22:22)
[2023-06-13] MEDS: ACCU-CHEK COMFORT CURVE STRIP VI SCH ×4 (06:33→23:09)
[2023-06-13 06:37] LABS: Basophils # (auto) 0 10 ^3/uL (0-0.2); Eosinophils # (auto) 0.5 10 ^3/uL (0-0.8); Monocytes # (auto) 1.4 10 ^3/uL (0-1.3); Red Cell Distribution Width 16.2 % (11.8-14.3)
[2023-06-13 06:39] LABS: Basophils % (auto) 0.4 % (0.0-2.0); Hematocrit 27.1 % (36.0-46.0); Hemoglobin 8.4 g/dL (12.2-16.2); Lymphocytes # (auto) 1.3 10 ^3/uL (0.4-5.4); Mean Corpuscular Hemoglobin 24.3 pg (28.0-32.0); Mean Corpuscular Volume 78.2 fL (80.0-100.0); Monocytes % (auto) 16.1 % (0.0-12.0); Neutrophils # (auto) 5.7 10 ^3/uL (1.6-8.6); Neutrophils % (auto) 63.5 % (37.0-80.0); Red Blood Cells 3.47 10^6/uL (4.0-5.20)
[2023-06-13 06:48] LABS: Chloride 110 mmol/L (98-107); Potassium 4.4 mmol/L (3.5-5.1); Sodium 139 mmol/L (136-145)
[2023-06-13] MEDS: MEROPENEM 500MG IVPB 50 ML IV SCH ×3 (06:48→18:05)
[2023-06-13 06:49] LABS: Anion Gap 7 (5-15); Calcium 8.1 mg/dL (8.7-10.4); Carbon Dioxide 22 mmol/L (20-30)
[2023-06-13] MEDS: InsuLIN REG 1unit/0.01ml Soln (100units/ml) SC SCH ×4 (06:49→22:58)
[2023-06-13 06:54] LABS: BUN/Creatinine Ratio 24.6 (10.0-20.0); Blood Urea Nitrogen 66 mg/dL (9-23); Glucose 112 mg/dL (74-106)
[2023-06-13 06:59] LABS: Magnesium 1.6 mg/dL (1.6-2.6)
[2023-06-13 07:17] LABS: Erythrocyte Sedimentation Rate 58 mm/hr (0-20)
[2023-06-13 07:28] LABS: CRP High Sensitivity 8.67 mg/dL (<1.0)
[2023-06-13] MEDS: Escitalopram 10 MG Tablet PO SCH (10:00)
[2023-06-13] MEDS: ENOXAPARIN SOD 80 MG/0.8ML SYRINGE SC SCH (10:29)
[2023-06-13] MEDS: FLORASTOR (S. BOULARDII) 250 MG CAP PO SCH (10:30)
[2023-06-13] MEDS: ASPirin-EC 81 mg tab PO SCH (10:30)
[2023-06-13] MEDS: PANTOPRAZOLE 40 MG TAB PO SCH (10:30)
[2023-06-13] MEDS: cloNIDine HCL 0.1 MG TAB PO SCH ×2 (10:30→22:40)
[2023-06-13] MEDS: METOPROLOL TARTRATE 25 MG TAB PO SCH ×2 (10:31→22:22)
[2023-06-13] MEDS: IRON SUCROSE COMPLEX 100 ML IV SCH (13:35)
[2023-06-13 14:32] LABS: Body Fluid White Blood Cells 135 CUMM (0-200)
[2023-06-13 14:33] LABS: Body Fluid Polymorphonuclear 0 % (0-25); Body Fluid Red Blood Cells 1728 CUMM (0-2000)
[2023-06-13] MEDS ORDERED: MILK OF MAGNESIA 30ML SUSP PO ONE (16:30)
[2023-06-13] MEDS: ATORVASTATIN 20 MG TAB PO SCH (22:22)
[2023-06-14] VITALS (7 sets, daily range): BP systolic 135–177; BP diastolic 72–88; PULSE 76–109; RESP 14–19; TEMP 97.6–98.5; O2SAT 92–96
[2023-06-14] MEDS: HYDROcodone-ACET 5/325MG TAB PO PRN ×2 (00:30→23:11)
[2023-06-14] MEDS: MORPHINE SULFATE INJ 2 MG/ml SYRG IV PRN ×3 (05:01→20:41)
[2023-06-14 05:20] LABS: Basophils # (auto) 0 10 ^3/uL (0-0.2); Basophils % (auto) 0.3 % (0.0-2.0); Eosinophils # (auto) 0.5 10 ^3/uL (0-0.8); Eosinophils % (auto) 5.1 % (0.0-7.0); Hematocrit 29.1 % (36.0-46.0); Lymphocytes # (auto) 1.5 10 ^3/uL (0.4-5.4); Lymphocytes % (auto) 14.2 % (10.0-50.0); Mean Corpuscular Hgb Conc. 31.1 g/dL (32.0-36.0); Mean Corpuscular Volume 77.2 fL (80.0-100.0); Monocytes # (auto) 1.4 10 ^3/uL (0-1.3); Monocytes % (auto) 13.8 % (0.0-12.0); Neutrophils # (auto) 6.9 10 ^3/uL (1.6-8.6); Neutrophils % (auto) 66.6 % (37.0-80.0); Nucleated Red Blood Cells % 0.1 %; Red Blood Cells 3.76 10^6/uL (4.0-5.20); Red Cell Distribution Width 16.1 % (11.8-14.3); White Blood Cell 10.4 10^3/uL (4.4-10.8)
[2023-06-14 05:35] LABS: Anion Gap 6 (5-15); Calcium 8.5 mg/dL (8.5-10.1); Carbon Dioxide 24 mmol/L (20-30); Chloride 111 mmol/L (98-107); Potassium 4.2 mmol/L (3.5-5.1); Sodium 141 mmol/L (136-145)
[2023-06-14 05:41] LABS: Blood Urea Nitrogen 59 mg/dL (9-23); Glucose 107 mg/dL (74-106)
[2023-06-14] MEDS: FUROSEMIDE 100 MG/10ML VIAL IV SCH ×2 (06:00→06:43)
[2023-06-14] MEDS: MEROPENEM 500MG IVPB 50 ML IV SCH ×2 (06:30→18:02)
[2023-06-14] MEDS: SODIUM BICARBONATE 650 MG TAB PO SCH ×4 (06:42→21:54)
[2023-06-14] MEDS: GABAPENTIN 100 MG CAP PO SCH ×3 (06:42→21:53)
[2023-06-14] MEDS: ACCU-CHEK COMFORT CURVE STRIP VI SCH ×4 (07:21→21:54)
[2023-06-14] MEDS: InsuLIN REG 1unit/0.01ml Soln (100units/ml) SC SCH ×4 (07:22→23:05)
[2023-06-14] MEDS: Escitalopram 10 MG Tablet PO SCH (10:00)
[2023-06-14] MEDS: FLORASTOR (S. BOULARDII) 250 MG CAP PO SCH (11:19)
[2023-06-14] MEDS: PANTOPRAZOLE 40 MG TAB PO SCH (11:19)
[2023-06-14] MEDS: cloNIDine HCL 0.1 MG TAB PO SCH ×2 (11:19→21:54)
[2023-06-14] MEDS: METOPROLOL TARTRATE 25 MG TAB PO SCH ×2 (11:20→21:54)
[2023-06-14] MEDS: ENOXAPARIN SOD 80 MG/0.8ML SYRINGE SC SCH (11:21)
[2023-06-14] MEDS: ASPirin-EC 81 mg tab PO SCH (12:24)
[2023-06-14] MEDS: IRON SUCROSE COMPLEX 100 ML IV SCH (12:24)
[2023-06-14] MEDS ORDERED: LACTULOSE 20Gm/30ML SOLN PO PRN (13:15)
[2023-06-14] MEDS: FERROUS SULFATE 325mg EC TAB PO SCH (18:02)
[2023-06-14] MEDS: ATORVASTATIN 20 MG TAB PO SCH (21:52)
[2023-06-14] MEDS: FUROSEMIDE 20 MG TAB PO SCH (21:53)
[2023-06-14] MEDS: hydrALAZINE HCL 25 MG TAB PO PRN (23:10)
[2023-06-15] MEDS: MORPHINE SULFATE INJ 2 MG/ml SYRG IV PRN ×3 (04:51→17:53)
[2023-06-15] MEDS: GABAPENTIN 100 MG CAP PO SCH ×3 (05:54→23:39)
[2023-06-15] MEDS: SODIUM BICARBONATE 650 MG TAB PO SCH ×4 (05:54→23:37)
[2023-06-15] MEDS: HYDROcodone-ACET 5/325MG TAB PO PRN ×3 (06:22→23:58)
[2023-06-15] MEDS: ACCU-CHEK COMFORT CURVE STRIP VI SCH ×4 (06:23→22:00)
[2023-06-15] MEDS: InsuLIN REG 1unit/0.01ml Soln (100units/ml) SC SCH ×4 (06:25→22:00)
[2023-06-15 06:41] LABS: Anion Gap 6 (5-15); Carbon Dioxide 24 mmol/L (20-30); Chloride 112 mmol/L (98-107); Sodium 142 mmol/L (136-145)
[2023-06-15 06:42] LABS: Calcium 8.2 mg/dL (8.7-10.4)
[2023-06-15 06:47] LABS: BUN/Creatinine Ratio 22.8 (10.0-20.0); Glucose 87 mg/dL (74-106)
[2023-06-15 06:49] LABS: Blood Urea Nitrogen 43 mg/dL (9-23)
[2023-06-15] MEDS: MEROPENEM 500MG IVPB 50 ML IV SCH ×2 (06:49→17:42)
[2023-06-15 08:00] VITALS: PULSE 79
[2023-06-15] MEDS: FLORASTOR (S. BOULARDII) 250 MG CAP PO SCH (08:28)
[2023-06-15] MEDS: FERROUS SULFATE 325mg EC TAB PO SCH ×2 (08:30→17:42)
[2023-06-15] MEDS: PANTOPRAZOLE 40 MG TAB PO SCH (08:30)
[2023-06-15] MEDS: FUROSEMIDE 20 MG TAB PO SCH ×2 (08:30→23:40)
[2023-06-15] MEDS: METOPROLOL TARTRATE 25 MG TAB PO SCH ×2 (08:31→23:41)
[2023-06-15] MEDS: ASPirin-EC 81 mg tab PO SCH (08:32)
[2023-06-15] MEDS: cloNIDine HCL 0.1 MG TAB PO SCH ×2 (08:32→23:39)
[2023-06-15] MEDS: ENOXAPARIN SOD 80 MG/0.8ML SYRINGE SC SCH ×2 (08:33→23:44)
[2023-06-15 09:03] VITALS: BP 132/76; PULSE 82; RESP 16; TEMP 98.3; O2SAT 91
[2023-06-15] MEDS: Escitalopram 10 MG Tablet PO SCH (09:13)
[2023-06-15 12:48] VITALS: BP 155/90; PULSE 78; RESP 16; TEMP 98.1; O2SAT 100
[2023-06-15 16:42] VITALS: BP 182/108; PULSE 88; RESP 15; TEMP 98; O2SAT 95
[2023-06-15] MEDS: hydrALAZINE HCL 25 MG TAB PO PRN (17:52)
[2023-06-15 20:00] VITALS: PULSE 88; RESP 98; O2SAT 95
[2023-06-15 22:00] VITALS: BP 161/99; PULSE 104; RESP 20; TEMP 99.3; O2SAT 98
[2023-06-15] MEDS: ATORVASTATIN 20 MG TAB PO SCH (23:39)
[2023-06-16] VITALS (8 sets, daily range): BP systolic 112–157; BP diastolic 74–93; PULSE 77–96; RESP 18–98; TEMP 98.1–99.1; O2SAT 95–99
[2023-06-16] MEDS: MORPHINE SULFATE INJ 2 MG/ml SYRG IV PRN ×3 (01:26→18:16)
[2023-06-16] MEDS: GABAPENTIN 100 MG CAP PO SCH ×3 (05:58→22:09)
[2023-06-16] MEDS: SODIUM BICARBONATE 650 MG TAB PO SCH ×4 (05:59→22:09)
[2023-06-16] MEDS: HYDROcodone-ACET 5/325MG TAB PO PRN ×3 (05:59→19:57)
[2023-06-16] MEDS: MEROPENEM 500MG IVPB 50 ML IV SCH ×2 (06:03→19:48)
[2023-06-16] MEDS: InsuLIN REG 1unit/0.01ml Soln (100units/ml) SC SCH ×4 (06:16→22:15)
[2023-06-16 06:30] LABS: Calcium 8.2 mg/dL (8.5-10.1); Chloride 110 mmol/L (98-107); Potassium 4.1 mmol/L (3.5-5.1); Sodium 139 mmol/L (136-145)
[2023-06-16 06:31] LABS: Anion Gap 5 (5-15); Carbon Dioxide 24 mmol/L (20-30)
[2023-06-16 06:36] LABS: BUN/Creatinine Ratio 21.6 (10.0-20.0); Blood Urea Nitrogen 36 mg/dL (9-23); Glucose 126 mg/dL (74-106)
[2023-06-16 06:47] LABS: Eosinophils # (auto) 0.8 10 ^3/uL (0-0.8); Lymphocytes % (auto) 17.1 % (10.0-50.0); Mean Corpuscular Hgb Conc. 30.8 g/dL (32.0-36.0)
[2023-06-16 06:50] LABS: Basophils # (auto) 0 10 ^3/uL (0-0.2); Basophils % (auto) 0.3 % (0.0-2.0); Eosinophils % (auto) 6.6 % (0.0-7.0); Hematocrit 30.7 % (36.0-46.0); Hemoglobin 9.5 g/dL (12.2-16.2); Mean Corpuscular Hemoglobin 24.5 pg (28.0-32.0); Mean Corpuscular Volume 79.6 fL (80.0-100.0); Monocytes # (auto) 1.5 10 ^3/uL (0-1.3); Monocytes % (auto) 12.5 % (0.0-12.0); Neutrophils # (auto) 7.5 10 ^3/uL (1.6-8.6); Neutrophils % (auto) 63.5 % (37.0-80.0); Red Blood Cells 3.86 10^6/uL (4.0-5.20); Red Cell Distribution Width 16.7 % (11.8-14.3); White Blood Cell 11.8 10^3/uL (4.4-10.8)
[2023-06-16] MEDS: ASPirin-EC 81 mg tab PO SCH (09:11)
[2023-06-16] MEDS: FLORASTOR (S. BOULARDII) 250 MG CAP PO SCH (09:11)
[2023-06-16] MEDS: FERROUS SULFATE 325mg EC TAB PO SCH ×2 (09:11→18:35)
[2023-06-16] MEDS: PANTOPRAZOLE 40 MG TAB PO SCH (09:11)
[2023-06-16] MEDS: METOPROLOL TARTRATE 25 MG TAB PO SCH ×2 (09:12→22:08)
[2023-06-16] MEDS: cloNIDine HCL 0.1 MG TAB PO SCH ×2 (09:12→22:09)
[2023-06-16] MEDS: ENOXAPARIN SOD 80 MG/0.8ML SYRINGE SC SCH ×2 (09:13→22:05)
[2023-06-16] MEDS: FUROSEMIDE 20 MG TAB PO SCH ×2 (09:13→22:09)
[2023-06-16] MEDS: Escitalopram 10 MG Tablet PO SCH (10:00)
[2023-06-16] MEDS: ACCU-CHEK COMFORT CURVE STRIP VI SCH ×3 (11:30→22:14)
[2023-06-16] MEDS: LISINOPRIL 10 MG TAB PO SCH (14:19)
[2023-06-16] MEDS: ATORVASTATIN 20 MG TAB PO SCH (22:07)
[2023-06-17] MEDS: MORPHINE SULFATE INJ 2 MG/ml SYRG IV PRN ×4 (01:27→23:13)
[2023-06-17] MEDS: HYDROcodone-ACET 5/325MG TAB PO PRN ×2 (04:07→11:56)
[2023-06-17 05:00] VITALS: BP 155/86; PULSE 90; RESP 17; TEMP 99.9; O2SAT 96
[2023-06-17] MEDS: GABAPENTIN 100 MG CAP PO SCH ×3 (05:37→21:20)
[2023-06-17] MEDS: MEROPENEM 500MG IVPB 50 ML IV SCH ×2 (05:38→18:43)
[2023-06-17] MEDS: SODIUM BICARBONATE 650 MG TAB PO SCH ×4 (05:38→21:20)
[2023-06-17] MEDS: ACCU-CHEK COMFORT CURVE STRIP VI SCH ×4 (06:07→21:48)
[2023-06-17] MEDS: InsuLIN REG 1unit/0.01ml Soln (100units/ml) SC SCH ×4 (06:12→21:54)
[2023-06-17 07:30] VITALS: PULSE 88; RESP 98; O2SAT 95
[2023-06-17 09:00] VITALS: BP 144/86; PULSE 81; RESP 18; TEMP 100; O2SAT 98
[2023-06-17] MEDS: FUROSEMIDE 20 MG TAB PO SCH (09:14)
[2023-06-17] MEDS: cloNIDine HCL 0.1 MG TAB PO SCH ×2 (09:14→21:23)
[2023-06-17] MEDS: FLORASTOR (S. BOULARDII) 250 MG CAP PO SCH (09:15)
[2023-06-17] MEDS: PANTOPRAZOLE 40 MG TAB PO SCH (09:15)
[2023-06-17] MEDS: METOPROLOL TARTRATE 25 MG TAB PO SCH ×2 (09:15→21:22)
[2023-06-17] MEDS: ASPirin-EC 81 mg tab PO SCH (09:15)
[2023-06-17] MEDS: FERROUS SULFATE 325mg EC TAB PO SCH ×2 (09:15→18:40)
[2023-06-17] MEDS: ENOXAPARIN SOD 80 MG/0.8ML SYRINGE SC SCH ×2 (09:26→21:17)
[2023-06-17] MEDS: Escitalopram 10 MG Tablet PO SCH (10:00)
[2023-06-17] MEDS: LISINOPRIL 10 MG TAB PO SCH (11:57)
[2023-06-17 13:00] VITALS: BP 170/95; PULSE 91; RESP 14; TEMP 99.1; O2SAT 96
[2023-06-17 17:00] VITALS: BP 163/88; PULSE 86; RESP 14; TEMP 99.8; O2SAT 97
[2023-06-17] MEDS: HYDROcodone-ACET 7.5/325MG TAB PO PRN (18:52)
[2023-06-17] MEDS: ATORVASTATIN 20 MG TAB PO SCH (21:19)
[2023-06-17] MEDS: DOXYCYCLINE 100 MG TAB/CAP PO SCH (21:20)
[2023-06-17] MEDS: FUROSEMIDE 40 MG TAB PO SCH (21:21)
[2023-06-18] MEDS: HYDROcodone-ACET 7.5/325MG TAB PO PRN ×2 (02:06→12:46)
[2023-06-18 05:00] VITALS: BP 141/75; PULSE 85; RESP 19; TEMP 98.7; O2SAT 94
[2023-06-18] MEDS: GABAPENTIN 100 MG CAP PO SCH ×2 (06:00→16:07)
[2023-06-18] MEDS: SODIUM BICARBONATE 650 MG TAB PO SCH ×3 (06:00→17:30)
[2023-06-18 06:24] LABS: Calcium 8.3 mg/dL (8.5-10.1); Chloride 110 mmol/L (98-107); Sodium 142 mmol/L (136-145)
[2023-06-18 06:25] LABS: Anion Gap 4 (5-15); Carbon Dioxide 28 mmol/L (20-30)
[2023-06-18 06:30] LABS: BUN/Creatinine Ratio 23.6 (10.0-20.0); Blood Urea Nitrogen 39 mg/dL (9-23); Glucose 130 mg/dL (74-106)
[2023-06-18] MEDS: MEROPENEM 500MG IVPB 50 ML IV SCH ×2 (06:31→18:30)
[2023-06-18 06:39] LABS: Basophils # (auto) 0 10 ^3/uL (0-0.2); Eosinophils # (auto) 0.5 10 ^3/uL (0-0.8); Hemoglobin 9.2 g/dL (12.2-16.2); Monocytes # (auto) 1.4 10 ^3/uL (0-1.3)
[2023-06-18 06:40] LABS: CRP High Sensitivity 6.56 mg/dL (<1.0)
[2023-06-18 06:41] LABS: Basophils % (auto) 0.4 % (0.0-2.0); Eosinophils % (auto) 4.3 % (0.0-7.0); Hematocrit 29.2 % (36.0-46.0); Lymphocytes % (auto) 17.4 % (10.0-50.0); Mean Corpuscular Hemoglobin 24.9 pg (28.0-32.0); Mean Corpuscular Hgb Conc. 31.5 g/dL (32.0-36.0); Mean Corpuscular Volume 79.2 fL (80.0-100.0); Monocytes % (auto) 12.5 % (0.0-12.0); Neutrophils # (auto) 7.5 10 ^3/uL (1.6-8.6); Neutrophils % (auto) 65.4 % (37.0-80.0); Red Blood Cells 3.68 10^6/uL (4.0-5.20); Red Cell Distribution Width 16.8 % (11.8-14.3); White Blood Cell 11.5 10^3/uL (4.4-10.8)
[2023-06-18] MEDS: InsuLIN REG 1unit/0.01ml Soln (100units/ml) SC SCH ×3 (07:00→17:00)
[2023-06-18 07:30] VITALS: PULSE 87; RESP 16; O2SAT 97
[2023-06-18] MEDS: ACCU-CHEK COMFORT CURVE STRIP VI SCH ×3 (08:07→17:00)
[2023-06-18 09:00] VITALS: BP 160/87; PULSE 88; RESP 20; TEMP 98.4; O2SAT 95
[2023-06-18] MEDS: ENOXAPARIN SOD 80 MG/0.8ML SYRINGE SC SCH (09:24)
[2023-06-18] MEDS: FUROSEMIDE 40 MG TAB PO SCH (09:24)
[2023-06-18] MEDS: ASPirin-EC 81 mg tab PO SCH (09:25)
[2023-06-18] MEDS: LISINOPRIL 10 MG TAB PO SCH (09:25)
[2023-06-18] MEDS: PANTOPRAZOLE 40 MG TAB PO SCH (09:25)
[2023-06-18] MEDS: METOPROLOL TARTRATE 25 MG TAB PO SCH (09:25)
[2023-06-18] MEDS: MORPHINE SULFATE INJ 2 MG/ml SYRG IV PRN ×2 (09:26→16:17)
[2023-06-18] MEDS: FLORASTOR (S. BOULARDII) 250 MG CAP PO SCH (09:26)
[2023-06-18] MEDS: cloNIDine HCL 0.1 MG TAB PO SCH (09:26)
[2023-06-18] MEDS: FERROUS SULFATE 325mg EC TAB PO SCH ×2 (09:26→17:30)
[2023-06-18] MEDS: Escitalopram 10 MG Tablet PO SCH (10:00)
[2023-06-18] MEDS: DOXYCYCLINE 100 MG TAB/CAP PO SCH (12:46)
[2023-06-18 13:00] VITALS: BP 140/82; PULSE 109; RESP 20; TEMP 98.7; O2SAT 90
[2023-06-18 16:58] VITALS: BP 168/90; PULSE 88; RESP 22; TEMP 98.4; O2SAT 97
== END 2023-06-18 19:50 | DRG 190 ==
LOC: ER 09:50 → EDBD 09:50 → TELE 11:44 → TELE-CENTR 23:28
PROVIDERS: ADMIT Nurse Practitioner Family; ATTEND Internal Medicine
PROC: 4A023N7 Measurement of Cardiac Sampling and Pressure, Left Heart, Percutaneous Approach (ICD-10-PCS; principal; 2023-06-05)
PROC: B211YZZ Fluoroscopy of Multiple Coronary Arteries using Other Contrast (ICD-10-PCS; 2023-06-05)
PROC: 0S9C3ZX Drainage of Right Knee Joint, Percutaneous Approach, Diagnostic (ICD-10-PCS; 2023-06-13)
DX: I21.4 Non-ST elevation (NSTEMI) myocardial infarction (principal); N17.0 Acute kidney failure with tubular necrosis; I50.31 Acute diastolic (congestive) heart failure; I82.411 Acute embolism and thrombosis of right femoral vein; E87.20 Acidosis, unspecified; L03.115 Cellulitis of right lower limb; D50.9 Iron deficiency anemia, unspecified; E11.22 Type 2 diabetes mellitus with diabetic chronic kidney disease; I13.0 Hypertensive heart and chronic kidney disease with heart failure and stage 1 through stage 4 chronic kidney disease, or unspecified chronic kidney disease; K59.00 Constipation, unspecified; J98.11 Atelectasis; I16.1 Hypertensive emergency; E78.5 Hyperlipidemia, unspecified; F41.9 Anxiety disorder, unspecified; N30.00 Acute cystitis without hematuria; N18.30 Chronic kidney disease, stage 3 unspecified; E11.65 Type 2 diabetes mellitus with hyperglycemia; E11.40 Type 2 diabetes mellitus with diabetic neuropathy, unspecified; T50.8X5A Adverse effect of diagnostic agents, initial encounter; I25.10 Atherosclerotic heart disease of native coronary artery without angina pectoris; Z79.4 Long term (current) use of insulin; Z88.5 Allergy status to narcotic agent; Z79.899 Other long term (current) drug therapy; Y92.89 Other specified places as the place of occurrence of the external cause; Z95.1 Presence of aortocoronary bypass graft; Z87.440 Personal history of urinary (tract) infections; Z86.718 Personal history of other venous thrombosis and embolism; Z83.3 Family history of diabetes mellitus
CPT/HCPCS: 36415; 71045; 73700; 73721; 76775; 76881; 76942; 80048; 80053; 81001; 82550; 82570; 82962; 83036; 83540; 83550; 83735; 83880; 83935; 84156; 84300; 84484; 85025; 85379; 85610; 85652; 85730; 86141; 86850; 86900; 86901; 87040; 87081; 87086; 87205; 89051; 93005; 93458; 93970; 93971; 97163; 99152; C9113; G0378; J0696; J1756; J1815; J2185; J2250; J2405; J3490; J7060; Q9967